=== PATIENT | male | born 1945 | race Caucasian/White ===

== ENCOUNTER 2017-08-08 18:45 | Inpatient (IN) | payer MEDICARE, OTHER ==
[~2017-08-08] VITALS: Ht 188 cm; Wt 110.0 kg
[2017-08-08] MEDS ORDERED: morphine 4 MG/ML VIAL IV STA (18:48)
[2017-08-08] MEDS ORDERED: ONDANSETRON 4 MG INJ IV STA ×2 (18:48→19:59)
[2017-08-08] MEDS ORDERED: SOD CHLORIDE 0.9% 500 ML IV STA (18:48)
--- NOTE | 2017-08-08 19:55 | RADRPT ---
PROCEDURE: Noncontrast CT Head. CLINICAL INDICATION: Syncope TECHNIQUE: Noncontrast CT of the head was obtained. The administered radiation dose was CTDI vol = 43.86 mGy, DLP = 810.25 mGy-cm. One or more of the following dose reduction techniques were used: Au tomated exposure control, Adjustment of the mA and/or kV according to patient size, or Use of iterat marisa reconstruction technique. COMPARISON: There are no similar studies submitted for comparison. FINDINGS: There is no acute intracranial hemorrhage, midline shift, or mass effect. The cerebral cervantes-white ma tter differentiation appears preserved. No extra-axial collection is seen. There is moderate diffuse cerebral volume loss with compensatory diffuse cerebral sulcal and ventricular enlargement. Minimal patchy low attenuation scattered in the periventricular and deep cerebral white matter is nonspecif ic, but suggestive of mild chronic microangiopathic change. The basal cisterns are preserved. No the re is moderate diffuse cerebellar volume loss. There is extensive intracranial calcific atherosclero tic disease involving the internal carotid arteries bilaterally and proximal right vertebral artery. The orbits are grossly unremarkable. The visualized paranasal sinuses and mastoid air cells are gloria ar. No acute fracture or suspicious osseous lesion is identified. IMPRESSION: 1. No evidence of an acute intracranial process. 2. Moderate diffuse cerebral volume loss and moderate diffuse cerebellar volume loss. 3. Evidence of mild chronic microangiopathic cerebral white matter change. 4. Extensive intracranial calcific atherosclerotic disease. RPTAT: [facility] Physician Danilo Date Time Electronically viewed and signed by Physician Danilo on 08/08/2017 19:55 RC/
[2017-08-08] MEDS ORDERED: HYDROmorphONE 0.5 MG/0.5 ML SYG IV STA ×4 (19:59→23:03)
--- NOTE | 2017-08-08 20:26 | RADRPT ---
PROCEDURE: CT Cervical Spine. CLINICAL INDICATION: Syncope TECHNIQUE: A CT of the cervical spine was performed on a multidetector [employer] CT scanner utilizing hig h-resolution axial imaging from the skull base through the cervical thoracic junction. Sagittal, co gab, and multiplanar reformatted images were made. CTDI 22.22 mGy and DLP 491.31 mGy-cm. One of the following 3 dose reduction techniques were used during this CT examination: 1) Automated exposure control 2) Adjustment of the mA +/- kV according to patient size or 3) Use of iterative reconstruction technique COMPARISON: None available FINDINGS: There is straightening of the normal cervical lordosis of the cervical spine with mild kyphotic apex at the C4-5 level. Preservation of vertebral body heights are noted. Severe anterior degenerative s pondylosis/enthesopathy is present of the C4-C6 levels with vacuum phenomenon with in the bridging o steophyte at C6-7 and continued at the C7-T1 levels. The vertebral body heights are well preserved. No acute fractures or traumatic subluxations are present. The intervertebral discs demonstrate mild disc space height loss at the C5-6 through to the C7-T1 levels with anterior disc calcification at C 7-T1. Ossification and posteriorly of the ligamentum nuchae is noted posterior to the spinous proces s sees of C4-C6. The visualized soft tissues are remarkable for surgical clips present in the region of the sternomanubrial joint. The posterior elements are intact and well aligned. The presence of f usion of the left greater than right facet joints at C4-5 is noted. No evidence for soft tissue swelling is present. The visualized paravertebral soft tissues imaged demonstrate mild vascular calc ifications of the carotid bulbs in the common carotid arteries. The bilateral thyroid lobes and the lung apices are clear. The specific axial levels are as follows: Occiput to C2: No significant pathology or stenosis is present. Atlantoaxial degenerative changes a re noted. C2-3: The intervertebral disc height is normal. Mild bilateral facet arthropathy is present. The ce ntral canal is and subarticular recesses and right neural foramen are patent. Mild left neural thuy inal stenosis is present. C3-4: The intervertebral discs is normal in height. A 3 mm mild broad-based bulge is present. AP ca nal dimension is 9.7 mm. Bilateral uncovertebral osteophytes and facet arthropathy is present. This results in a mild central canal stenosis, bilateral subarticular recess stenosis and moderate bilate ral neural foraminal stenosis. C4-5: The intervertebral disc demonstrates mild disc space height loss . Posterior fusion is noted of the C4-5 vertebral body and ankylosis is present of the bilateral facet joints. A large anterior bridging osteophyte is present. A 4-5 mm moderate to large broad-based disc osteophyte complex is pr esent. AP canal dimension is 7.8 mm. Right greater than left facet arthropathy and uncovertebral ost eophytes are noted. The above findings result in a moderate central canal stenosis, bilateral subart icular recess stenosis, and severe bilateral neural foraminal stenosis. C5-6: Mild disc space height loss is present and a large right anterolateral bridging osteophyte is noted. A mild 2 mm broad-based disc osteophyte complex is present. AP canal dimension is 9.8 mm. Thi s results in a mild central canal stenosis, bilateral subarticular recess stenosis and mild left victor hugo ral foraminal stenosis. The central canal, subarticular recess and neural foramen are patent. C6-7: Vacuum phenomenon is noted in the incomplete bridging osteophytes anteriorly at this level. M ild disc space height loss is present. A mild 3 mm broad-based bulge is present. A large right anter ior lateral osteophyte is again noted. AP canal dimension is 9 mm. This results in a mild central ca nal stenosis without subarticular recess or neural foraminal stenosis. C7-T1: Anterior bridging osteophytes are present at this level with anterior disc calcification at C7-T1. Mild disc space height loss is present. The central canal, subarticular recess and neural for amen are patent. IMPRESSION: 1. No acute fractures or traumatic subluxations are present. 2. Straightening of the normal cervical lordosis with kyphotic apex at C4-5 3. Severe anterior degenerative flowing osteophytes/enthesopathy as noted above at the C4-T1 levels. 4. Multilevel broad-based disc osteophyte complexes at the C3-4 through C6-7 levels with moderate ce ntral canal stenosis at C4-5 and mild at C3-4, C5-6 and C6-7. 5. Multilevel neural foraminal stenosis at the C2-3 through C6-7 levels. 6. Mild atherosclerotic vascular disease 7. Multilevel facet and uncovertebral osteoarthropathy as described above. RPTAT: HDC .Odilia Ward MD, MD Date Time Electronically viewed and signed by .Odilia Ward MD, MD on 08/08/2017 20:26 .C/
--- NOTE | 2017-08-08 20:55 | RADRPT ---
PROCEDURE: CT pelvis CLINICAL INDICATION: Pain in right hip status post fall TECHNIQUE: A CT of the pelvis was performed on a [employer] CT scanner utilizing high-resolut ion axial imaging. Sagittal, coronal, multiplanar reformatted images were made. Soft tissue and jose c ne algorithms were utilized. CTDI 27.35 and DLP 972.21 One of the following 3 dose reduction techniques were used during this CT examination: 1) Automated exposure control 2) Adjustment of the mA +/- kV according to patient size or 3) Use of iterative reconstruction technique COMPARISON: No relevant priors FINDINGS: An acute, closed, impaction type comminuted fracture of the right femoral neck is noted. Mild 3 mm d isplacement of several fracture fragments are noted both medially and laterally with mild impaction and foreshortening of the right femoral diaphysis. Generalized osteopenia is present. The visualized left hip and femur are normal in appearance. Degenerative changes are noted which are severe and th e bilateral sacroiliac joints with bridging osteophytes. Degenerative changes are present in the nathaly tebral discs imaged with vacuum phenomenon and severe disc space height loss at the L3-4 and L4-5 le vels. Mild disc space height loss is present at L5-S1. A grade 1 spondylolisthesis of L4 on L5-8 is present without evidence for spondylolysis. The visualized soft tissues of the pelvis demonstrate vascular calcifications of the aorta and the b ilateral common iliac arteries without aneurysmal dilatation. The visualized bowel demonstrates mild diverticulosis without evidence for acute diverticulitis and no evidence for appendicitis. The appe ndix is normal. The urinary bladder is well distended. A mild prostate gland enlargement is noted which measures 4.4 cm AP by 4.7 cm in transverse dimensions The right femoral head remains articulated with in the cailin tabulum. Generalized osteopenia is present. Bilateral fatty inguinal hernias are present without toribio dence for bowel herniation. The right measures 3.1 cm in transverse dimensions and the left measures 2.7 cm in transverse dimensions. IMPRESSION: 1. Acute, closed, comminuted and impacted right femoral neck fracture with foreshortening and mild displacement of fracture fragments is noted. 2. Generalized osteopenia 3. Severe degenerative changes of the imaged spine and the bilateral sacroiliac joints. 4. Grade 1 6 mm spondylolisthesis of L4 and L5 without evidence for spondylolysis. 5. Mild diverticulosis without evidence for acute diverticulitis or appendicitis. A call report was made to Dr. Root at approximately 10/21/2016 11:12:44 PM following the completion of the examination by the undersigned. RPTAT: HDC .Odilia Ward MD, MD Date Time Electronically viewed and signed by .Odilia Ward MD, on 08/08/2017 20:55 .C/
--- NOTE | 2017-08-08 21:20 | RADRPT ---
PROCEDURE: XR Chest. CLINICAL INDICATION: Syncope TECHNIQUE: AP Portable chest. COMPARISON: No pertinent prior examinations were submitted for comparison. FINDINGS: There is mild cardiomegaly. Prior median sternotomy is noted. There is mild pulmonary vascular eli estion. The osseous structures are unremarkable. IMPRESSION: Mild pulmonary vascular congestion. RPTAT: HIKT .Deion Douglas MD, MD Date Time Electronically viewed and signed by .Deion Douglas MD, MD on 08/08/2017 21:19 .T/
[2017-08-08 21:21] VITALS: TEMP 98.1
--- NOTE | 2017-08-08 21:55 | RADRPT ---
PROCEDURE: MRI lumbar spine CLINICAL INDICATION: Bilateral lower extremity weakness right greater than left with possible cord compression TECHNIQUE: An MRI of the lumbar spine was performed on a high resolution high definition, 3.[employer] MRI scanner utilizing the following sequences: Sagittal T1 weighted, sagittal and dual echo axial T2 weighted, and sagittal T2 weighted with fat saturation. COMPARISON: CT pelvis 08/08/2017 FINDINGS: There is a normal lordosis of the lumbar spine. 6 mm grade 1 spondylolisthesis of L4 and L5 is pre sent without evidence for spondylolysis present. 2 mm degenerative retrolisthesis of L1 on L2 and L2 on L3 is present. The vertebral body heights are well preserved. The intervertebral discs demonstra te multilevel disc desiccation at the T12-L1 through to the L5-S1 levels. Severe disc space height l oss is noted at the L1-2 through L4-5 levels with vacuum disc phenomenon present at L1-2 through L4- 5. Mild disc space height loss is present at the L5-S1 level. The posterior elements are intact and well aligned. The visualized paravertebral soft tissues are normal. The conus medullaris terminates normally at the T12-L1 level. The specific axial levels are as follows: T12 - L1: Disc desiccation is present with mild disc space height loss. A 5 mm large broad-based bu lge is present. Mild bilateral facet arthropathy is present with ligamentum hypertrophy. AP canal di mension is 7.8 mm. This results in a moderate central canal stenosis, bilateral subarticular recess stenosis, and moderate bilateral neural foraminal stenosis. L1 - L2: Disc desiccation with severe disc space height loss and vacuum phenomenon is present. A mo derate 4 mm broad-based disc osteophyte complex is present. A superimposed left subarticular recess 5 mm disc extrusion is present. Mild bilateral facet arthropathy and ligamentum hypertrophy is prese nt. AP canal dimension posterior to the disc extrusion is approximately 5 mm. This results in a iman re central, left subarticular recess stenosis, mild right subarticular recess stenosis and severe bi lateral neural foraminal stenosis. Recommend correlation with a left L2 radiculopathy secondary to t he left subarticular recess stenosis and a bilateral L1 radiculopathy secondary to neural foraminal stenosis. L2 - L3: Severe disc space height loss disc desiccation and vacuum phenomenon is present. A mild de generative retrolisthesis is again noted at this level. Mild broad-based disc osteophyte complex is present. AP canal dimension is 9.8 mm. Associated bilateral facet arthropathy, ligamentum hypertroph y and facet effusion is present. The above findings result in a mild central canal stenosis, bilater al subarticular recess stenosis , and severe bilateral neural foraminal stenosis. Recommend correlat ion with a bilateral L3 and L2 radiculopathy. L3 - L4: Disc desiccation and severe disc space height loss and vacuum phenomenon is present. A mil d osteophytic bar and bulge is present at which measures 5 mm. Moderate bilateral facet arthropathy and ligamentum hypertrophy is present. AP canal dimension is 10 mm. Mild central canal stenosis, lef t greater than right subarticular recess stenosis, severe left and moderate right neural foraminal s tenosis is present. Recommend correlation with a left greater than right L4 radiculopathy and L3 r adiculopathy. L4 - L5: Severe disc space height loss disc desiccation and vacuum disc phenomenon is present. Grad e 1 6 mm spondylolisthesis of L4 and L5 is present without evidence for spondylolysis. A large 5 mm broad-based bulge is present. Severe bilateral facet arthropathy is present. AP canal dimension is 6 .5 mm. This results in a moderate to severe central canal stenosis, severe bilateral subarticular re cess stenosis , and severe left greater than right neural foraminal stenosis. Recommend correlatio n with a bilateral L5 and left greater than right L4 radiculopathy. L5 - S1: Disc desiccation is present with mild disc space height loss. A mild 3 mm broad-based bulg e is present. Mild bilateral facet arthropathy is noted. The central canal, bilateral subarticular r ecesses are patent. Mild bilateral neural foraminal stenosis is present. A subcutaneous 2 cm lipoma is present at the L4-5 level. IMPRESSION: 1. No evidence for conus or cord compression. 2. No evidence for acute fractures or traumatic subluxations. 3. Grade 1 6 mm spondylolisthesis of L4 and L5 without evidence for spondylolysis. 4. Multilevel disc desiccation and disc space height loss as described above from the T12-L1 throug h L5-S1 levels with severe degenerative disc disease at the L1-2 through L4-5 levels. 5. 5 mm left subarticular recess disc extrusion at L1-2 with severe central and left subarticular re cess stenosis. Recommend correlation with a left L2 radiculopathy. 6. Multilevel broad-based disc osteophyte complexes at the T12-L1 through L5-S1 levels with severe central canal stenosis at L1-2, moderate to severe at L4-5, moderate at T12-L1, and mild at L2-3 and L3-4 levels. 7. Multilevel subarticular recess and neural foraminal stenosis as indicated above at the T12-L1 th rough L5-S1 levels with radiculopathy as noted. 8. Multilevel facet and ligamentum flavum osteoarthropathy. RPTAT: HDC .Odilia Ward MD, Date Time Electronically viewed and signed by .Odilia Ward MD, on 08/08/2017 21:55 .C/
[2017-08-08] MEDS ORDERED: ACETAMINOPHEN 325 MG TAB PO PRN (22:30)
[2017-08-08] MEDS ORDERED: ONDANSETRON 4 MG INJ IV PRN (22:30)
--- NOTE | 2017-08-08 23:23 | ERD ---
ER Documentation Chief Complaint Chief Complaint C/O RIGHT HIP AND RIGHT KNEE PAIN S/P GLF HPI This is a 72-year-old male who presents via EMS complaining of right hip pain status post ground-level fall. He states that he has chronic lumbar radiculopathy and he states that just prior to arrival he felt his right leg give out which is unusual for him. He fell to the ground. He did hit his head and does take Eliquis for atrial fibrillation. He denies any neck pain. He is now describing some weakness and difficulty moving the right lower extremity. He told the triage nurse he is having right knee pain but denies this to me. His tetanus is up-to-date. His pain is moderate, 5-6 out of 10 to the right hip and worse with movement. He denies any nausea or vomiting, no prodrome of chest pain or shortness of breath. ROS All systems reviewed and are negative except as per history of present illness. PMhx/Soc History of Surgery: Yes (AVR, back, R knee x 2, sinus) Anesthesia Reaction: No Hx Neurological Disorder: Yes (Parkinson) Hx Cardiac Disorders: Yes (HTN) Hx Alcohol Use: No Hx Substance Use: No Hx Tobacco Use: No Smoking Status: Former smoker FmHx Family History: No diabetes Physical Exam Vitals Vital Signs Date Time Temp Pulse Resp B/P Pulse Ox O2 Delivery O2 Flow Rate FiO2 08/08/17 21:21 98.1 81 18 148/74 95 Room Air 08/08/17 18:49 98.3 67 18 173/95 97 Physical Exam My trauma physical exam Airway is intact Bilateral breath sounds Strong distal pulses No obvious deficits General: Well developed, well nourished, no acute distress Head: Normocephalic, atraumatic other than small right occipital parietal abrasion, no significant hematoma Eyes: Pupils equally reactive, EOM intact ENT: Moist mucous membranes Neck: Supple, no lymphadenopathy, No midline tenderness, deformities, step-offs to the cervical spine, full active and passive range of motion without midline pain. Respiratory: Lungs clear bilaterally, no distress, no chest wall tenderness, no crepitus Cardiovascular: Irregular, no murmurs, rubs, or gallops Abdominal: Soft, non-tender, non-distended, no peritoneal signs, pelvis is stable : Deferred MSK: The patient appears to have weakness of the right lower extremity with slight shortening and external rotation. No focal tenderness to the ankle or knee bilaterally. Soft tissue tenderness of the right hip with difficulty ranging the right lower extremity. No midline tenderness deformities or step- offs of the thoracolumbar spine Neurologic: Alert and oriented, moving all extremities, normal speech, no focal weakness, no cerebellar signs Skin: No ecchymoses or bruising to the chest or abdomen Psych: Normal mood Result Diagram: 08/08/17189908/08/171899 Results 24 hrs Laboratory Tests Test 08/08/17 19:00 08/08/17 21:45 White Blood Count 13.910^3/ul Red Blood Count 5.1810^6/ul Hemoglobin 14.7g/dl Hematocrit 44.9% Mean Corpuscular Volume 86.7fl Mean Corpuscular Hemoglobin 28.4pg Mean Corpuscular Hemoglobin Concent 32.7g/dl Red Cell Distribution Width 14.9% Platelet Count 09902^3/UL Mean Platelet Volume 11.9fl Neutrophils % 86.1% Lymphocytes % 9.7% Monocytes % 3.2% Eosinophils % 0.5% Basophils % 0.1% Nucleated Red Blood Cells % 0.0/100WBC Neutrophils # 11.910^3/ul Lymphocytes # 1.410^3/ul Monocytes # 0.410^3/ul Eosinophils # 0.110^3/ul Basophils # 0.010^3/ul Nucleated Red Blood Cells # 0.010^3/ul Prothrombin Time 14.9Sec Prothrombin Time Ratio 1.2 INR International Normalized Ratio 1.16 Activated Partial Thromboplast Time 30.5Sec Sodium Level 143mmol/L Potassium Level 3.1mmol/L Chloride Level 101mmol/L Carbon Dioxide Level 30mmol/L Anion Gap 15 Blood Urea Nitrogen 27mg/dl Creatinine 1.35mg/dl Glucose Level 117mg/dl Calcium Level 9.2mg/dl Troponin I < 0.012ng/ml Urine Color YELLOW Urine Clarity CLEAR Urine pH 6.0 Urine Specific [place] 1.017 Urine Ketones TRACEmg/dL Urine Nitrite NEGATIVEmg/dL Urine Bilirubin NEGATIVEmg/dL Urine Urobilinogen 2+mg/dL Urine Leukocyte Esterase NEGATIVELeu/ul Urine Microscopic RBC 0/HPF Urine Microscopic WBC 2/HPF Urine Hemoglobin NEGATIVEmg/dL Urine Glucose NEGATIVEmg/dL Urine Total Protein 1+mg/dl Current Medications Medications (Trade) Dose Ordered Sig/Stefanie Route PRN Reason Start Time Stop Time Status Last Admin Dose Admin Sodium Chloride (NS) 500 ml @ 500 mls/hr Q1H STAT IV 08/08/17 18:48 08/08/17 19:47 DC 08/08/17 19:06 Morphine Sulfate (morphine) 4 mg ONCE STAT IV 08/08/17 18:48 08/08/17 18:51 DC 08/08/17 19:06 Ondansetron HCl (Zofran Inj) 4 mg ONCE STAT IV 08/08/17 18:48 08/08/17 18:51 DC 08/08/17 19:06 Hydromorphone HCl (Dilaudid) 0.5 mg ONCE STAT IV 08/08/17 19:59 08/08/17 20:47 DC Hydromorphone HCl (Dilaudid) 0.5 mg ONCE STAT IV 08/08/17 19:59 08/08/17 20:01 DC 08/08/17 20:02 Ondansetron HCl (Zofran Inj) 4 mg ONCE STAT IV 08/08/17 19:59 08/08/17 20:01 DC 08/08/17 20:02 Hydromorphone HCl (Dilaudid) 0.5 mg ONCE STAT IV 08/08/17 21:28 08/08/17 21:29 DC 08/08/17 21:33 Ondansetron HCl (Zofran Inj) 4 mg BRIDGE ORDER PRN IV NAUSEA AND/OR VOMITING 08/08/17 22:30 08/09/17 22:29 Acetaminophen (Tylenol Tab) 650 mg ER BRIDGE PRN PO MILD PAIN/FEVER 08/08/17 22:30 08/09/17 22:29 Hydromorphone HCl (Dilaudid) 0.5 mg ONCE STAT IV 08/08/17 23:03 08/08/17 23:04 DC Procedures/MDM EKG, MONITORS, & DIAGNOSTIC IMAGING: EKG: I reviewed and interpreted a 12-lead EKG. Rhythm: A. fib, rate controlled Ectopy: None Intervals: No abnormalities ST segments: No elevations or depressions T waves: No contiguous inversions Chest x-ray: I reviewed and interpreted a 1 view of the chest Mediastinum: No enlargement Cardiac silhouette: No cardiomegaly Airspace: Clear lung matute bilaterally without evidence of pneumothorax Bones: No evidence of fracture CT brain: No evidence of acute intracranial process per radiology read CT c spine: IMPRESSION: 1. No acute fractures or traumatic subluxations are present. 2. Straightening of the normal cervical lordosis with kyphotic apex at C4-5 3. Severe anterior degenerative flowing osteophytes/enthesopathy as noted above at the C4-T1 levels. 4. Multilevel broad-based disc osteophyte complexes at the C3-4 through C6-7 levels with moderate central canal stenosis at C4-5 and mild at C3-4, C5-6 and C6-7. 5. Multilevel neural foraminal stenosis at the C2-3 through C6-7 levels. 6. Mild atherosclerotic vascular disease 7. Multilevel facet and uncovertebral osteoarthropathy as described above. CT pelvis IMPRESSION: 1. Acute, closed, comminuted and impacted right femoral neck fracture with foreshortening and mild displacement of fracture fragments is noted. 2. Generalized osteopenia 3. Severe degenerative changes of the imaged spine and the bilateral sacroiliac joints. 4. Grade 1 6 mm spondylolisthesis of L4 and L5 without evidence for spondylolysis. 5. Mild diverticulosis without evidence for acute diverticulitis or appendicitis. A call report was made to Dr. Root at approximately 10/21/2016 11:12:44 PM following the completion of the examination by the undersigned. MRI spine IMPRESSION: 1. No evidence for conus or cord compression. 2. No evidence for acute fractures or traumatic subluxations. 3. Grade 1 6 mm spondylolisthesis of L4 and L5 without evidence for spondylolysis. 4. Multilevel disc desiccation and disc space height loss as described above from the T12-L1 through L5-S1 levels with severe degenerative disc disease at the L1-2 through L4-5 levels. 5. 5 mm left subarticular recess disc extrusion at L1-2 with severe central and left subarticular recess stenosis. Recommend correlation with a left L2 radiculopathy. 6. Multilevel broad-based disc osteophyte complexes at the T12-L1 through L5- S1 levels with severe central canal stenosis at L1-2, moderate to severe at L4-5 , moderate at T12-L1, and mild at L2-3 and L3-4 levels. 7. Multilevel subarticular recess and neural foraminal stenosis as indicated above at the T12-L1 through L5-S1 levels with radiculopathy as noted. 8. Multilevel facet and ligamentum flavum osteoarthropathy. LAB INTERPRETATION: White count of 13.9, nonspecific likely stress response, slight hypokalemia and renal insufficiency, negative troponin MEDICAL DECISION MAKING: The patient presents to the emergency room with a fall and right hip pain. There is strong concern for hip fracture however the patient does have weakness of the lower extremity with a history of lumbar radiculopathy. There is some concern that the prodrome of the patient's fall may have been related to cauda equina or cord compression. MRI is indicated. The patient does take Eliquis and has evidence of a head injury prompting CT imaging of the brain. The patient does not meet high-risk criteria and based on NEXUS cervical spine criteria there is no indication for cervical spine imaging at this time. ER COURSE: The patient had preoperative testing. No signs or symptoms concerning for syncope, arrhythmia, stroke. The patient's history of A. fib is consistent with his EKG and is rate controlled. He is appropriately anticoagulated. CT imaging shows evidence of a right femoral neck fracture. He was receiving multiple doses of pain medication. MRI shows no evidence of cord compression. The patient will wire inpatient hospitalization for surgical intervention of his hip fracture. I spoke to Dr. Duran who is on the case. The patient's tetanus is up-to-date. His scalp abrasion was cleansed, no indication for surgical, suture or Dermabond repair. I kept the patient and/or family informed of laboratory and diagnostic imaging results throughout the emergency room course. DISPOSITION PLAN: Medical surgical admission for management of right hip fracture CONSULTATION: Accepting care team and consultations: I discussed the current laboratory data, diagnostic imaging and emergency care provided. Admitting team: Dr. Talamantes Admitting team indication: Insurance directed Consulting services: Dr. Duran, orthopedic surgery Departure Diagnosis: Primary Impression: Closed right hip fracture Encounter type: initial encounter Qualified Code: S72.001A - Closed fracture of right hip, initial encounter Additional Impressions: History of atrial fibrillation Closed head injury Encounter type: initial encounter Qualified Code: S09.90XA - Closed head injury, initial encounter Acute renal insufficiency Condition: Stable STEPHANIE ROOT MD Aug 08, 2017 23:23
[2017-08-09] VITALS: BP 167/79; PULSE 78; RESP 18; Ht 188 cm; Wt 110.0 kg
[2017-08-09] MEDS ORDERED: POTASSIUM CHLORIDE (SR) 20 MEQ TAB PO ONE (00:30)
[2017-08-09 03:22] VITALS: BP 163/77; RESP 18
[2017-08-09] MEDS: morphine 2 MG INJ IV PRN ×4 (04:52→21:31)
--- NOTE | 2017-08-09 07:25 | HP ---
Date/Time of Note Date/Time of Note DATE: 08/09/17 TIME: 07:18 Assessment/Plan VTE Prophylaxis VTE Prophylaxis Intervention: SCD's Lines/Catheters IV Catheter Type (from Nrs): Saline Lock Assessment/Plan Assessment/Plan ASSESSMENT 72-year-old male with a history of Parkinson's disease, CAD with CABG, aortic valve replacement, lumbar canal stenosis, laminectomy and chronic lower back pain who presented to ER with right hip pain status post ground-level fall is found to have a right femoral neck fracture. PLAN Awaiting orthopedic evaluation Pain management Physical therapy evaluation Patient's lumbar spine findings are chronic and patient is aware of this. He can follow-up at the [facility] upon discharge Correct electrolytes as needed HPI/ROS Admit Date/Time Admit Date/Time Aug 08, 2017 at 22:26 Hx of Present Illness This is a 72-year-old male with a history of Parkinson's disease, CAD with CABG , aortic valve replacement, lumbar canal stenosis, laminectomy and chronic lower back pain who presented to the ER complaining of right hip pain. He said he was in his bedroom when he is right lower extremity buckle causing him to fall. He uses cane, walker or a wheelchair depending on how fast he wants to travel. He denied any chest pain, palpitation, lightheadedness, shortness of breath prior to or after the fall. When he presented to the ER, imaging shows right femoral neck fracture. Lumbar MRI showed severe central canal stenosis. PMH/Family/Social Social History Smoking Status: Former smoker Exam/Review of Systems Vital Signs Vitals Vital Signs Date Time Temp Pulse Resp B/P Pulse Ox O2 Delivery O2 Flow Rate FiO2 08/09/17 03:22 98.5 69 18 163/77 93 08/09/17 00:00 Room Air Intake and Output 08/08/17 08/08/17 08/09/17 15:00 23:00 07:00 Intake Total 240 ml Output Total 400 ml Balance -160 ml Exam Constitutional: alert, oriented, well developed Head: atraumatic, normocephalic Eyes: EOMI, PERRL ENMT: other (Poor dentition) Respiratory: clear to auscultation Cardiovascular: nl pulses, regular rate and rhythm Gastrointestinal: non-tender, soft Musculoskeletal: other (Right hip tenderness, and limited range of motion) Labs Result Diagram: 08/09/17 0529 08/09/17 0529 Medications Medications Current Medications Morphine Sulfate (morphine) 2 mg Q4H PRN IV PAIN LEVEL 6-10 Last administered on 08/09/17t 04:52; Admin Dose 2 MG; Start 08/09/17 at 00:30 GREG DORAN MD Aug 09, 2017 07:25
[2017-08-09 08:15] VITALS: BP 178/81; RESP 18
[2017-08-09] MEDS ORDERED: POTASSIUM CHLORIDE (SR) 20 MEQ TAB PO STA (11:46)
--- NOTE | 2017-08-09 11:50 | PN ---
Date/Time of Note Date/Time of Note DATE: 08/09/17 TIME: 11:50 Assessment/Plan VTE Prophylaxis VTE Prophylaxis Intervention: SCD's Lines/Catheters IV C[facility]ter Type (from [facility] Saline Lock Assessment/Plan Chief Complaint/Hosp Course 72-year-old male, with multiple comorbidities, who was transferred from assisted living place with status post ground-level fall with resultant right femoral neck fracture. 1. Mechanical fall with right femoral neck fracture. -Follow-up with orthopedic recommendations. At present, plan is right hip hemiarthroplasty. -Continue with pain medications. 2. Bilateral knee osteoarthritis. -Patient is being followed up with [facility] facility and is planning to have bilateral knee surgeries in August. 3. CAD with status post CABG -Continue medical optimization.(The coagulation+BB+ACEi+Statin) 4. History of aortic valve replacement. 5. Chronic back pain with history of laminectomy. -Continue as needed pain medications. 6. Parkinson's disease -Resume home medications and continue supportive care. 7. Dyslipidemia. -Resume statin 8. Hypertension. -Resume home antihypertensives. 9. Peripheral neuropathy. -Resume home medications. 10. Leukocytosis, most likely reactive. We will also obtain a urine culture and treat accordingly. Plan: As per orthopedic recommendation, patient needs right hip hemiarthroplasty. Due to his cardiac risk factors, we are going to request a 2D echocardiogram as well as cardiology consultation prior to any surgical intervention. We will also defer anticoagulation to cardiology team as patient is also taking Eliquis. For now, we will hold it. We will also have case management speak with patient as he also raised some concern regarding his follow-up at [facility] for future knee arthroplasty and would like to have the orthopedic team follow-up with this encounter if possible. Preoperative risk stratification. Given patient's medical condition, patient is at intermediate to high risk risk for any untoward medical events for surgery. However, benefit likely outweigh risks and recommended to have surgical intervention. Also please note that cardiology clearance is indicated prior to any surgical intervention. dvt Prophylaxis: At this time, we will provide patient with SCDs. Defer to cardiology regarding continuation of Eliquis versus other anticoagulants prior to surgery. Patient is seen in collaboration with . Problems: Subjective 24 Hr Interval Summary Free Text/Dictation Patient lying in bed comfortably. He is not in acute distress. Exam/Review of Systems Vital Signs Vitals Vital Signs Date Time Temp Pulse Resp B/P Pulse Ox O2 Delivery O2 Flow Rate FiO2 08/09/17 08:15 98.6 72 18 178/81 95 08/09/17 00:00 Room Air Intake and Output 08/08/17 08/08/17 08/09/17 15:00 23:00 07:00 Intake Total 240 ml Output Total 400 ml Balance -160 ml Exam General: Chronically ill looking, obese male, not in any acute distress . HEENT: Normocephalic, Atraumatic, No laceration or hematoma; Eyes: PEERL, Conjunctiva clear, Anicteric sclera Neck: Supple without any lymphadenopathy, nontender, no JVD, no carotid bruits, trachea midline, no thyromegaly Cardiac: S1, S2 auscultated, regular rhythm and rate, no mumurs or gallop Pulmonary: Normal respiratory effort. Chest clear to auscultation bilaterally, no adventitious breath sounds GI: Abdomen normal to inspection. Soft, non tender, non- distended, no masses, no rebound tenderness or guarding. Bowel sounds active on all four quadrants Genitourinary: Deferred Extremities: With right hip tenderness and decreased range of motion on right lower extremity. With Parkinson's tremors on hands/arms. No cyanosis, clubbing , or edema. Pulses [2+] bilaterally. Neurologic: Alert to person, place, time, and situation. Affect appropriate, intact sensation. Skin: Clean,dry, and intact. No ecchymosis, no rashes, or lesions Results Result Diagram: 08/09/17 0529 08/09/17 0529 Results 24 hrs Laboratory Tests Test 08/08/17 19:00 08/08/17 21:45 08/09/17 05:29 White Blood Count 13.9 H 15.7 H Red Blood Count 5.18 5.12 Hemoglobin 14.7 15.2 Hematocrit 44.9 44.3 Mean Corpuscular Volume 86.7 86.5 Mean Corpuscular Hemoglobin 28.4 L 29.7 Mean Corpuscular Hemoglobin Concent 32.7 34.3 Red Cell Distribution Width 14.9 H 14.6 H Platelet Count 161 147 Mean Platelet Volume 11.9 H 12.3 H Neutrophils % 86.1 H 85.1 H Lymphocytes % 9.7 L 5.6 L Monocytes % 3.2 5.5 Eosinophils % 0.5 2.8 Basophils % 0.1 0.4 Nucleated Red Blood Cells % 0.0 0.0 Neutrophils # 11.9 H 13.3 H Lymphocytes # 1.4 0.9 Monocytes # 0.4 0.9 Eosinophils # 0.1 0.4 Basophils # 0.0 0.1 Nucleated Red Blood Cells # 0.0 0.0 Prothrombin Time 14.9 H Prothrombin Time Ratio 1.2 INR International Normalized Ratio 1.16 Activated Partial Thromboplast Time 30.5 Sodium Level 143 144 Potassium Level 3.1 L 3.3 L Chloride Level 101 102 Carbon Dioxide Level 30 30 Anion Gap 15 15 Blood Urea Nitrogen 27 H 25 H Creatinine 1.35 H 1.14 Glucose Level 117 121 Calcium Level 9.2 8.7 Troponin I < 0.012 Urine Color YELLOW Urine Clarity CLEAR Urine pH 6.0 Urine Specific [place] 1.017 Urine Ketones TRACE A Urine Nitrite NEGATIVE Urine Bilirubin NEGATIVE Urine Urobilinogen 2+ H Urine Leukocyte Esterase NEGATIVE Urine Microscopic RBC 0 Urine Microscopic WBC 2 Urine Hemoglobin NEGATIVE Urine Glucose NEGATIVE Urine Total Protein 1+ H Phosphorus Level 3.3 Magnesium Level 1.8 Total Bilirubin 1.8 H Direct Bilirubin 0.00 Indirect Bilirubin 1.8 H Aspartate Amino Transf (AST/SGOT) 26 Alanine Aminotransferase (ALT/SGPT) 35 Alkaline Phosphatase 68 Total Protein 6.9 Albumin 4.3 Globulin 2.60 Albumin/Globulin Ratio 1.65 Medications Medications Current Medications Morphine Sulfate (morphine) 2 mg Q4H PRN IV PAIN LEVEL 6-10 Last administered on 08/09/17t 08:37; Admin Dose 2 MG; Start 08/09/17 at 00:30 HARLEY ORLANDO NP Aug 09, 2017 11:50 HARLEY ORLANDO NP Aug 09, 2017 11:50
--- NOTE | 2017-08-09 13:09 | RADRPT ---
PROCEDURE: XR Knees. CLINICAL INDICATION: Pain. History of surgery. TECHNIQUE: Three views of the bilateral knees are available for review. COMPARISON: None available FINDINGS: Left knee: There is no acute osseous abnormality or evidence of fracture. Mild narrowing is seen at the lateral femorotibial compartment small marginal osteophyte formation. Subcortical lucencies and irregularity seen at the lateral femoral condyle, likely chronic in nature. There that surgical cli ps are seen at the dorsomedial aspect of the knee. No evidence for a joint effusion. Vascular calcif ications are present. There is chondrocalcinosis. Right knee: Subchondral sclerosis, marginal osteophyte formation and narrowing is seen all 3 compartments. There is severe narrowing of the medial and lateral femorotibial compartments. No acute osseous abnormali ty is seen. There is a screw at the proximal tibia possibly from prior tibial tubercle transfer or p atellar tendon repair. There is a right knee joint effusion. IMPRESSION: 1. Mild lateral femorotibial compartment arthrosis also noting chondrocalcinosis in the left knee. 2. Tricompartmental right knee arthrosis severe at the femorotibial compartments. 3. Right knee joint effusion. 4. Intact screw at the proximal tibia on the right. RPTAT: [facility]U .Dimitrios Dubon MD, Date Time Electronically viewed and signed by .Dimitrios Dubon MD, MD on 08/09/2017 13:09 .d/
[2017-08-09] MEDS ORDERED: ASPI-664 PO (13:12)
[2017-08-09] MEDS ORDERED: ATOR20TA38 PO (13:13)
[2017-08-09] MEDS ORDERED: DOCU250C58 PO (13:15)
[2017-08-09] MEDS ORDERED: GABA300C16 PO ×2 (13:16→13:17)
[2017-08-09] MEDS ORDERED: CARV25TA79 PO (13:17)
[2017-08-09] MEDS ORDERED: LISI20TA11 PO (13:18)
[2017-08-09] MEDS ORDERED: TAMS0.4C2 PO (13:19)
[2017-08-09] MEDS ORDERED: TRAM50TA2 PO (13:20)
[2017-08-09] MEDS ORDERED: SENN-36 PO (13:21)
[2017-08-09] MEDS ORDERED: POLY17PO3 PO (13:21)
[2017-08-09] MEDS ORDERED: CHOL100062 PO (13:22)
[2017-08-09] MEDS ORDERED: DICL100G37 TOP (13:24)
[2017-08-09] MEDS ORDERED: AMAN100T PO (13:25)
[2017-08-09] MEDS ORDERED: APIX5TAB PO (13:26)
[2017-08-09] MEDS ORDERED: ACET500C5 PO (13:27)
[2017-08-09] MEDS ORDERED: CARB1TAB34 PO (13:29)
[2017-08-09 13:30] VITALS: BP 179/80; RESP 18
[2017-08-09] MEDS ORDERED: CARB15DR BOTH EYES (13:31)
[2017-08-09] MEDS ORDERED: BENG30OI TOP (13:34)
[2017-08-09] MEDS ORDERED: LACTINEX PO (13:40)
--- NOTE | 2017-08-09 14:14 | RADRPT ---
PROCEDURE: XR PELVIS. CLINICAL INDICATION: Pain rule out fracture TECHNIQUE: Single view of the pelvis was performed. COMPARISON: None. FINDINGS: There is shortening of the right femoral neck, highly concerning for acute fracture. There is mild s uperior elevation of the right proximal femur. The left hip is intact. There is bilateral femoral ac etabular osteoarthritic changes. Degenerate changes of the lumbosacral spine is noted. Iliac wings a re intact. The bilateral SI joints are symmetric. IMPRESSION: 1. ACUTE RIGHT FEMORAL NECK FRACTURE, with superior elevation of the right proximal femur. The femor al acetabular joint is intact. 2. Osteoarthritis of the left hip and lumbosacral spine. RPTAT: AAPP Physician Debbie Date Time Electronically viewed and signed by Physician Dbebie on 08/09/2017 14:14 ASUNCION/
[2017-08-09] MEDS ORDERED: CARBOXYMETHYLCELLULOSE 0.5% 0.1 ML OPH BOTH EYES PRN (15:00)
[2017-08-09] MEDS ORDERED: POLYETHYLENE GLYCOL 17 GM PACKET PO PRN (15:00)
[2017-08-09] MEDS: LISINOPRIL 20 MG TAB PO SCH (15:21)
[2017-08-09] MEDS: LACTOBACILLUS RHAMNOSUS CAP PO SCH ×2 (15:21→20:32)
--- NOTE | 2017-08-09 15:39 | CONS ---
Date/Time of Note Date/Time of Note DATE: 08/09/17 TIME: 15:35 Assessment/Plan Assessment/Plan Chief Complaint/Hosp Course 1.CV preop evaluation 2. R Femoral neck fracture 3. CAD 4. HX CABG 5. HX AVR 6. HTN 7. Dyslipidemia 8. pulm HTN, CHF 9./ HYPO K. cont coreg/ BELEM-I lasix x 1 now and will adjut hold eliquis for now. needs to be held 24-48 hours prior to the surgery. cont statin check lipid panel will check baseline ECG replace lytes after above pt would be considered stable with moderate risk of CV events for the proposed ortho surgery. no further cardiac work up would be indicated. Thank you for his referral. I will continue to follow along with you. DEVENDRA DODGE MD [facility] Problems: Consultation Date/Type/Reason Admit Date/Time Aug 08, 2017 at 22:26 Date of Consultation: Aug 09, 2017 Reason for Consultation CV preop Referring Provider: HARLEY ORLANDO NP Hx of Present Illness CC: S/P fall with knee and hip pain HPI: Dear Dr Orlando. Thank thank you for his referral. This is a very pleasant 72-year-old gentleman with history of coronary artery disease status post coronary bypass graft and probably bioprosthetic aortic valve replacement who had a mechanical fall. Patient is a fair historian at best. Said that he fell but he did not pass out. He said that he is the knee gave away and he fell. Patient has multiple fractures and is in need of orthopedic surgery. We were kindly asked to evaluate and treat. Patient denies any chest pain or pressure to me denies any palpitation to me. He reports that he has had a bypass surgery about 2 years ago and he reports that he has had a stress test done after that prior to rehab and he has done well and did not have any significant ischemia per his report. He says a sore tongue appear to be very limited due to his mostly orthopedic issues and arthritis and pain. Patient denies any PND orthopnea to me. Allergies: No known drug allergies Medications were reviewed with the medical reconciliation reviewed personally reviewed. Patient said he is taking Eliquis but he is not sure why. He is stated his last dose was 2-[address] Social history: Patient does not smoke now. He is a [facility] patient. Is being followed by the [place] normally. Past surgical history: History of aortic valve replacement and three-vessel bypass surgery about 2 years ago. Family history denies any history of early coronary artery disease. Review of systems above-mentioned. Patient has had left knee discomfort previously as well. He denies all review of systems except for above-mentioned to me. Social History Smoking Status: Former smoker Exam/Review of Systems Vital Signs Vitals Vital Signs Date Time Temp Pulse Resp B/P Pulse Ox O2 Delivery O2 Flow Rate FiO2 08/09/17 13:30 99.2 80 18 179/80 92 08/09/17 00:00 Room Air Intake and Output 08/08/17 08/08/17 08/09/17 15:00 23:00 07:00 Intake Total 240 ml Output Total 400 ml Balance -160 ml Exam General: no acute distress HEENT: NC/AT. pupils are equal. round. NECK: NO JVD. no stridor. chest: s/p sternotomy CV: RRR. systolic murmur; no gallop or rubs. PULM: no wheezing or rhonchi. GI: SOFT, NT, ND, no rebound or guarding Extremity: trace B/L LE edema. no clubbing. neuro: awake and alert, OX3. Psych: calm and pleasant rectal: deferred : normal male ECHO personally reviewed: normal EF pulm HTN normal functioning AVR. xRAY: 1. ACUTE RIGHT FEMORAL NECK FRACTURE, with superior elevation of the right proximal femur. The femoral acetabular joint is intact. 2. Osteoarthritis of the left hip and lumbosacral spine. Results Result Diagram: 08/09/17 0529 08/09/1729 Results 24 hrs Laboratory Tests Test 08/08/17 19:00 08/08/17 21:45 08/09/17 05:29 White Blood Count 13.9 H 15.7 H Red Blood Count 5.18 5.12 Hemoglobin 14.7 15.2 Hematocrit 44.9 44.3 Mean Corpuscular Volume 86.7 86.5 Mean Corpuscular Hemoglobin 28.4 L 29.7 Mean Corpuscular Hemoglobin Concent 32.7 34.3 Red Cell Distribution Width 14.9 H 14.6 H Platelet Count 161 147 Mean Platelet Volume 11.9 H 12.3 H Neutrophils % 86.1 H 85.1 H Lymphocytes % 9.7 L 5.6 L Monocytes % 3.2 5.5 Eosinophils % 0.5 2.8 Basophils % 0.1 0.4 Nucleated Red Blood Cells % 0.0 0.0 Neutrophils # 11.9 H 13.3 H Lymphocytes # 1.4 0.9 Monocytes # 0.4 0.9 Eosinophils # 0.1 0.4 Basophils # 0.0 0.1 Nucleated Red Blood Cells # 0.0 0.0 Prothrombin Time 14.9 H Prothrombin Time Ratio 1.2 INR International Normalized Ratio 1.16 Activated Partial Thromboplast Time 30.5 Sodium Level 143 144 Potassium Level 3.1 L 3.3 L Chloride Level 101 102 Carbon Dioxide Level 30 30 Anion Gap 15 15 Blood Urea Nitrogen 27 H 25 H Creatinine 1.35 H 1.14 Glucose Level 117 121 Calcium Level 9.2 8.7 Troponin I < 0.012 Urine Color YELLOW Urine Clarity CLEAR Urine pH 6.0 Urine Specific [place] 1.017 Urine Ketones TRACE A Urine Nitrite NEGATIVE Urine Bilirubin NEGATIVE Urine Urobilinogen 2+ H Urine Leukocyte Esterase NEGATIVE Urine Microscopic RBC 0 Urine Microscopic WBC 2 Urine Hemoglobin NEGATIVE Urine Glucose NEGATIVE Urine Total Protein 1+ H Phosphorus Level 3.3 Magnesium Level 1.8 Total Bilirubin 1.8 H Direct Bilirubin 0.00 Indirect Bilirubin 1.8 H Aspartate Amino Transf (AST/SGOT) 26 Alanine Aminotransferase (ALT/SGPT) 35 Alkaline Phosphatase 68 Total Protein 6.9 Albumin 4.3 Globulin 2.60 Albumin/Globulin Ratio 1.65 Medications Medications Current Medications Morphine Sulfate (morphine) 2 mg Q4H PRN IV PAIN LEVEL 6-10 Last administered on 08/09/17t 13:05; Admin Dose 2 MG; Start 08/09/17 at 00:30 Amantadine HCl (Symmetrel) 200 mg BID PO ; Start 08/09/17 at 21:00 Aspirin (Halfprin) 81 mg DAILY PO ; Start 08/10/17 at 09:00 Atorvastatin Calcium (Lipitor) 80 mg QHS PO ; Start 08/09/17 at 21:00 Carbidopa/Levodopa (Sinemet (25/ 100)) 1 tab QID PO ; Start 08/09/17 at 17:00 Eye Lubricant (Refresh Plus) 1 drop TID PRN BOTH EYES DRY EYES; Start at 15:00 Cholecalciferol (Vitamin D) 1,000 unit DAILY PO ; Start 08/10/17 at 09:00 Docusate Sodium (Colace) 250 mg BID PO ; Start 08/09/17 at 21:00 Gabapentin (Neurontin) 300 mg QHS PO ; Start 08/09/17 at 21:00 Polyethylene Glycol (Miralax) 17 gm DAILY PRN PO CONSTIPATION; Start 08/09/17 at 15:00 Senna (Senokot) 1 tab DAILY PRN PO CONSTIPATION; Start 08/09/17 at 15:00 Tamsulosin HCl (Flomax) 0.4 mg HS PO ; Start 08/09/17 at 21:00 Lactobacillus Acidophilus/ Rhamnosus (Culturelle) 1 cap BID PO Last administered on 08/09/17 15:21; Admin Dose 1 CAP; Start 08/09/17 at 14:54 Lisinopril (Zestril) 20 mg DAILY PO Last administered on 08/09/17 15:21; Admin Dose 20 MG; Start 08/09/17 at 14:49 Carvedilol (Coreg) 25 mg BID PO Last administered on 08/09/17 15:21; Admin Dose 25 MG; Start 08/09/17 at 14:50 DEVENDRA DODGE MD Aug 09, 2017 15:39
--- NOTE | 2017-08-09 15:55 | RADRPT ---
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 Physician: HARLEY ORLANDO Quality: Technically Difficult Study Procedures: Transthoracic echocardiogram with complete 2D, M-Mode, and doppler examination. Indications: Pre-op. 2D/M Mode Doppler Measurement Value Normal Ranges Measurement Value Normal Ranges LVIDd 2D 4.3 3.5 - 5.6 cm AV Mean Tre 1.5 m/sec LVIDs 2D 3.0 2.1 - 4.1 cm AV Mean PG 11.0 mmHg FS 2D 30.4 % AV Peak Tre 2.3 m/sec LVPWd 2D 1.5 0.6 - 1.1 cm AV Peak PG 22.0 mmHg IVSd 2D 1.5 0.6 - 1.1 cm AV VTI 42.8 cm IVS/LVPW 2D 1.0 LVOT Peak Tre 0.9 m/sec AoR Diam 2D 2.7 2.0 - 3.7 cm LVOT Peak PG 3.0 mmHg LA/Ao 2D 2 0 - 1 MV E Peak Tre 1.0 m/sec EDV 2D 80.1 cm3 MV A Peak Tre 1.3 m/sec ESV 2D 27.0 cm3 MV E/A 0.8 LA Dimen 2D 4.2 2.3 - 4.0 cm MV Decel Time 155 msec MV E/A 0.8 TR Peak Tre 3.9 m/sec TR Peak PG 61.0 mmHg RVSP 71.0 mmHg Findings Left Ventricle: Normal left ventricular systolic function. Normal left ventricular cavity size. Moderate concentric left ventricular hypertrophy. Ejection fraction is visually estimated at 55 - 60 %. Tissue Doppler/Mitral Doppler indices are consistent with impaired relaxation (Stage I diastolic dysfunction). Right Ventricle: Normal right ventricular size. Normal right ventricular systolic function. Left Atrium: There is mild enlargement of left atrium. Right Atrium: There is mild enlargement of right atrium. Mitral Valve: Mitral valve leaflets appear mildly thickened. Mild mitral annular calcification. No mitral valve regurgitation is seen. Aortic Valve: No significant aortic stenosis or insufficiency. Aortic cusps appear mildly calcified. Tricuspid Valve: Normal appearance of the tricuspid valve. Estimated peak PA systolic pressure 71 mmHg. There is mild tricuspid regurgitation. Pulmonic Valve: Pulmonic valve not well visualized. Pericardium: Normal pericardium with no significant pericardial effusion. Aorta: Normal aortic root. IVC: Normal size and normal respiratory collapse consistent with normal right atrial pressure. Conclusions 1.Normal left ventricular systolic function. Normal left ventricular cavity size. Moderate concentric left ventricular hypertrophy. Ejection fraction is visually estimated at 55 - 60 %. Tissue Doppler/Mitral Doppler indices are consistent with impaired relaxation (Stage I diastolic dysfunction). 2.There is mild enlargement of left atrium. 3.There is mild enlargement of right atrium. 4.Mitral valve leaflets appear mildly thickened. Mild mitral annular calcification. No mitral valve regurgitation is seen. 5.No significant aortic stenosis or insufficiency. Aortic cusps appear mildly calcified. 6.Normal size and normal respiratory collapse consistent with normal right atrial pressure. Electronically Signed By: Fei Castano 09-Aug-2017 15:54:26 -0700 Patient Name: SHIV PORTER Study Date: 09-Aug-2017 [id number]
--- NOTE | 2017-08-09 15:55 | RADRPT ---
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 Physician: HARLEY ORLANDO Quality: Technically Difficult Study Procedures: Transthoracic echocardiogram with complete 2D, M-Mode, and doppler examination. Indications: Pre-op. 2D/M Mode Doppler Measurement Value Normal Ranges Measurement Value Normal Ranges LVIDd 2D 4.3 3.5 - 5.6 cm AV Mean Tre 1.5 m/sec LVIDs 2D 3.0 2.1 - 4.1 cm AV Mean PG 11.0 mmHg FS 2D 30.4 % AV Peak Tre 2.3 m/sec LVPWd 2D 1.5 0.6 - 1.1 cm AV Peak PG 22.0 mmHg IVSd 2D 1.5 0.6 - 1.1 cm AV VTI 42.8 cm IVS/LVPW 2D 1.0 LVOT Peak Tre 0.9 m/sec AoR Diam 2D 2.7 2.0 - 3.7 cm LVOT Peak PG 3.0 mmHg LA/Ao 2D 2 0 - 1 MV E Peak Tre 1.0 m/sec EDV 2D 80.1 cm3 MV A Peak Tre 1.3 m/sec ESV 2D 27.0 cm3 MV E/A 0.8 LA Dimen 2D 4.2 2.3 - 4.0 cm MV Decel Time 155 msec MV E/A 0.8 TR Peak Tre 3.9 m/sec TR Peak PG 61.0 mmHg RVSP 71.0 mmHg Findings Left Ventricle: Normal left ventricular systolic function. Normal left ventricular cavity size. Moderate concentric left ventricular hypertrophy. Ejection fraction is visually estimated at 55 - 60 %. Tissue Doppler/Mitral Doppler indices are consistent with impaired relaxation (Stage I diastolic dysfunction). Right Ventricle: Normal right ventricular size. Normal right ventricular systolic function. Left Atrium: There is mild enlargement of left atrium. Right Atrium: There is mild enlargement of right atrium. Mitral Valve: Mitral valve leaflets appear mildly thickened. Mild mitral annular calcification. No mitral valve regurgitation is seen. Aortic Valve: No significant aortic stenosis or insufficiency. Aortic cusps appear mildly calcified. Tricuspid Valve: Normal appearance of the tricuspid valve. Estimated peak PA systolic pressure 71 mmHg. There is mild tricuspid regurgitation. Pulmonic Valve: Pulmonic valve not well visualized. Pericardium: Normal pericardium with no significant pericardial effusion. Aorta: Normal aortic root. IVC: Normal size and normal respiratory collapse consistent with normal right atrial pressure. Conclusions 1.Normal left ventricular systolic function. Normal left ventricular cavity size. Moderate concentric left ventricular hypertrophy. Ejection fraction is visually estimated at 55 - 60 %. Tissue Doppler/Mitral Doppler indices are consistent with impaired relaxation (Stage I diastolic dysfunction). 2.There is mild enlargement of left atrium. 3.There is mild enlargement of right atrium. 4.Mitral valve leaflets appear mildly thickened. Mild mitral annular calcification. No mitral valve regurgitation is seen. 5.No significant aortic stenosis or insufficiency. Aortic cusps appear mildly calcified. 6.Normal size and normal respiratory collapse consistent with normal right atrial pressure. Electronically Signed By: Fei Castano 09-Aug-2017 15:54:26 -0700 Patient Name: SHIV PORTER Study Date: 09-Aug-2017 [id number]
--- NOTE | 2017-08-09 15:55 | RADRPT ---
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 Physician: HARLEY ORLANDO Quality: Technically Difficult Study Procedures: Transthoracic echocardiogram with complete 2D, M-Mode, and doppler examination. Indications: Pre-op. 2D/M Mode Doppler Measurement Value Normal Ranges Measurement Value Normal Ranges LVIDd 2D 4.3 3.5 - 5.6 cm AV Mean Tre 1.5 m/sec LVIDs 2D 3.0 2.1 - 4.1 cm AV Mean PG 11.0 mmHg FS 2D 30.4 % AV Peak Tre 2.3 m/sec LVPWd 2D 1.5 0.6 - 1.1 cm AV Peak PG 22.0 mmHg IVSd 2D 1.5 0.6 - 1.1 cm AV VTI 42.8 cm IVS/LVPW 2D 1.0 LVOT Peak Tre 0.9 m/sec AoR Diam 2D 2.7 2.0 - 3.7 cm LVOT Peak PG 3.0 mmHg LA/Ao 2D 2 0 - 1 MV E Peak Tre 1.0 m/sec EDV 2D 80.1 cm3 MV A Peak Tre 1.3 m/sec ESV 2D 27.0 cm3 MV E/A 0.8 LA Dimen 2D 4.2 2.3 - 4.0 cm MV Decel Time 155 msec MV E/A 0.8 TR Peak Tre 3.9 m/sec TR Peak PG 61.0 mmHg RVSP 71.0 mmHg Findings Left Ventricle: Normal left ventricular systolic function. Normal left ventricular cavity size. Moderate concentric left ventricular hypertrophy. Ejection fraction is visually estimated at 55 - 60 %. Tissue Doppler/Mitral Doppler indices are consistent with impaired relaxation (Stage I diastolic dysfunction). Right Ventricle: Normal right ventricular size. Normal right ventricular systolic function. Left Atrium: There is mild enlargement of left atrium. Right Atrium: There is mild enlargement of right atrium. Mitral Valve: Mitral valve leaflets appear mildly thickened. Mild mitral annular calcification. No mitral valve regurgitation is seen. Aortic Valve: No significant aortic stenosis or insufficiency. Aortic cusps appear mildly calcified. Tricuspid Valve: Normal appearance of the tricuspid valve. Estimated peak PA systolic pressure 71 mmHg. There is mild tricuspid regurgitation. Pulmonic Valve: Pulmonic valve not well visualized. Pericardium: Normal pericardium with no significant pericardial effusion. Aorta: Normal aortic root. IVC: Normal size and normal respiratory collapse consistent with normal right atrial pressure. Conclusions 1.Normal left ventricular systolic function. Normal left ventricular cavity size. Moderate concentric left ventricular hypertrophy. Ejection fraction is visually estimated at 55 - 60 %. Tissue Doppler/Mitral Doppler indices are consistent with impaired relaxation (Stage I diastolic dysfunction). 2.There is mild enlargement of left atrium. 3.There is mild enlargement of right atrium. 4.Mitral valve leaflets appear mildly thickened. Mild mitral annular calcification. No mitral valve regurgitation is seen. 5.No significant aortic stenosis or insufficiency. Aortic cusps appear mildly calcified. 6.Normal size and normal respiratory collapse consistent with normal right atrial pressure. Electronically Signed By: Fei Castano 09-Aug-2017 15:54:26 -0700 Patient Name: SHIV PORTER Study Date: 09-Aug-2017 [id number]
[2017-08-09] MEDS: CARBIDOPA/LEVODOPA (25/100) TAB PO SCH ×2 (16:29→20:31)
[2017-08-09] MEDS: SPIRONOLACTONE 25 MG TAB PO SCH (16:29)
[2017-08-09] MEDS ORDERED: FUROSEMIDE 40 MG INJ IV ONE (16:30)
[2017-08-09] MEDS ORDERED: MAGNESIUM SULFATE 2 GM/50 ML 50 ML IVPB ONE (16:30)
--- NOTE | 2017-08-09 16:52 | CONS ---
DATE OF ADMISSION: 08/08/2017 DATE OF CONSULTATION: 08/09/2017 HISTORY OF PRESENT ILLNESS: Patient is a 72-year-old male who was admitted on 08 August 2017, when he came to the emergency room complaining of painful limit of motion involving his right hip. According to the patient, he was in his bathroom when he lost balance and fell down when his right knee gave out on him. He had a trauma and surgery involving his right knee as a teenager, which was complicated with some type of infection. He is to have a surgical treatment, may need total knee replacement of the right knee in the near future at [facility]. PHYSICAL EXAMINATION: My examination revealed a somewhat obese 72-year-old male, supine position in bed. There was a tenderness and swelling around the right hip. The range of motion of the right hip was not tested because of the pain. He is holding his right hip flexed and somewhat externally rotated. There was no evidence of acute neurovascular compromise involving the right lower extremity. LABORATORY: CT scan of the right hip revealed the presence of basal femoral neck fracture of the right hip. DIAGNOSTIC IMPRESSION: Basal neck fracture of the right hip. PLAN: Recommendations for treatment will be hemiarthroplasty of the right hip as soon as he can be medically cleared. I was informed that the patient wanted to be transferred to [facility], where he was going to have a total knee replacement done in the near future. Dictated By: In Britt Duran MD /[email or web address] /Document#: [id number]
--- NOTE | 2017-08-09 16:52 | CONS ---
DATE OF ADMISSION: 08/08/2017 DATE OF CONSULTATION: 08/09/2017 HISTORY OF PRESENT ILLNESS: Patient is a 72-year-old male who was admitted on 08 August 2017, when he came to the emergency room complaining of painful limit of motion involving his right hip. According to the patient, he was in his bathroom when he lost balance and fell down when his right knee gave out on him. He had a trauma and surgery involving his right knee as a teenager, which was complicated with some type of infection. He is to have a surgical treatment, may need total knee replacement of the right knee in the near future at [facility]. PHYSICAL EXAMINATION: My examination revealed a somewhat obese 72-year-old male, supine position in bed. There was a tenderness and swelling around the right hip. The range of motion of the right hip was not tested because of the pain. He is holding his right hip flexed and somewhat externally rotated. There was no evidence of acute neurovascular compromise involving the right lower extremity. LABORATORY: CT scan of the right hip revealed the presence of basal femoral neck fracture of the right hip. DIAGNOSTIC IMPRESSION: Basal neck fracture of the right hip. PLAN: Recommendations for treatment will be hemiarthroplasty of the right hip as soon as he can be medically cleared. I was informed that the patient wanted to be transferred to [facility], where he was going to have a total knee replacement done in the near future. Dictated By: In Britt Duran MD /[email or web address] /Document#: [id number]
[2017-08-09] MEDS: DOCUSATE SODIUM 250 MG CAP PO SCH (20:30)
[2017-08-09] MEDS: GABAPENTIN 300 MG CAP PO SCH (20:30)
[2017-08-09] MEDS: AMANTADINE 100 MG CAP PO SCH (20:31)
[2017-08-09] MEDS: TAMSULOSIN (SR) 0.4 MG CAP PO SCH (20:31)
[2017-08-09] MEDS: ATORVASTATIN 80 MG TAB PO SCH (20:31)
[2017-08-09 20:44] VITALS: BP 140/67; RESP 18
[2017-08-10 02:45] VITALS: BP 145/68; RESP 18
[2017-08-10] MEDS: GABAPENTIN 300 MG CAP PO SCH ×2 (06:34→21:10)
[2017-08-10 07:58] VITALS: BP 130/69; RESP 18
[2017-08-10] MEDS ORDERED: LISINOPRIL 20 MG TAB PO SCH (09:00)
[2017-08-10] MEDS: ASPIRIN (EC) 81 MG TAB PO SCH (09:23)
[2017-08-10] MEDS: CARBIDOPA/LEVODOPA (25/100) TAB PO SCH ×4 (09:23→21:11)
[2017-08-10] MEDS: LACTOBACILLUS RHAMNOSUS CAP PO SCH ×2 (09:23→21:10)
[2017-08-10] MEDS: DOCUSATE SODIUM 250 MG CAP PO SCH ×2 (09:23→21:10)
[2017-08-10] MEDS: SPIRONOLACTONE 25 MG TAB PO SCH (09:23)
[2017-08-10] MEDS: CHOLECALCIFEROL 1,000 UNIT TAB PO SCH (09:23)
[2017-08-10] MEDS: AMANTADINE 100 MG CAP PO SCH ×2 (09:23→21:11)
[2017-08-10] MEDS: LISINOPRIL 20 MG TAB PO SCH (09:24)
[2017-08-10] MEDS: morphine 2 MG INJ IV PRN ×2 (10:37→19:46)
[2017-08-10] MEDS ORDERED: POTASSIUM CHLORIDE (SR) 20 MEQ TAB PO STA ×2 (11:09→17:36)
--- NOTE | 2017-08-10 11:20 | PN ---
Date/Time of Note Date/Time of Note DATE: 08/10/17 TIME: 11:14 Assessment/Plan VTE Prophylaxis VTE Prophylaxis Intervention: SCD's, other (Eliquis on hold) Lines/Catheters IV C[facility]ter Type [facility]from [facility] [place]ine [place] Assessment/Plan Chief Complaint/Hosp Course 72-year-old male, with multiple comorbidities, who was transferred from assisted living place with status post ground-level fall with resultant right femoral neck fracture. 1. Mechanical fall with right femoral neck fracture. -Appreciate orthopedic evaluation and plan is right hip hemiarthroplasty. -Continue with pain medications. 2. Bilateral knee osteoarthritis. -Patient is being followed up with [facility] facility and is planning to have bilateral knee surgeries in August. 3. CAD with status post CABG -Continue medical optimization.(The coagulation+BB+ACEi+Statin) 4. History of aortic valve replacement. -Continue medical management 5. Pulmonary hypertension/CHF. Currently stable. -Continue with medical optimization. 6. Chronic back pain with history of laminectomy. -Continue as needed pain medications. 7. Parkinson's disease -Continue home medications and continue supportive care. 8. Dyslipidemia. -On statin 9. Hypertension. -Continue home antihypertensives. 10. Peripheral neuropathy. -Continue home medications. 11. Leukocytosis, most likely reactive. Stabilizing. 12. Hypokalemia. Replete and monitor. Plan: Plan is to proceed with right hip hemiarthroplasty with orthopedic team. Patient also had preop cardiac evaluation and is recommended to have surgical intervention., And holding Eliquis 24-48 hours prior to any surgical intervention and patient may resume Eliquis 48 hours post surgery. Preoperative risk stratification. Given patient's medical condition, patient is at intermediate to high risk risk for any untoward medical events for surgery. However, benefit likely outweigh risks and recommended to have surgical intervention. Also please note that cardiology clearance is indicated prior to any surgical intervention. dvt Prophylaxis: At this time, we will provide patient with SCDs. As per cardiology, at this time patient does not need any therapeutic anticoagulation in lieu of Eliquis. Patient is seen in collaboration with . Problems: Subjective 24 Hr Interval Summary Free Text/Dictation No acute distress Exam/Review of Systems Vital Signs Vitals Vital Signs Date Time Temp Pulse Resp B/P Pulse Ox O2 Delivery O2 Flow Rate FiO2 08/10/17 07:58 98.7 69 18 130/69 90 08/09/17 00:00 Room Air Intake and Output 08/09/17 08/09/17 08/10/17 15:00 23:00 07:00 Intake Total 890 ml 240 ml Output Total 1150 ml 1050 ml Balance -260 ml -810 ml Exam General: Chronically ill looking, obese male, not in any acute distress . HEENT: Normocephalic, Atraumatic, No laceration or hematoma; Eyes: PEERL, Conjunctiva clear, Anicteric sclera Neck: Supple without any lymphadenopathy, nontender, no JVD, no carotid bruits, trachea midline, no thyromegaly Cardiac: S1, S2 auscultated, regular rhythm and rate, no mumurs or gallop Pulmonary: Normal respiratory effort. Chest clear to auscultation bilaterally, no adventitious breath sounds GI: Abdomen normal to inspection. Soft, non tender, non- distended, no masses, no rebound tenderness or guarding. Bowel sounds active on all four quadrants Genitourinary: Deferred Extremities: With right hip tenderness and decreased range of motion on right lower extremity. With Parkinson's tremors on hands/arms. No cyanosis, clubbing , or edema. Pulses [2+] bilaterally. Neurologic: Alert to person, place, time, and situation. Affect appropriate, intact sensation. Skin: Clean,dry, and intact. No ecchymosis, no rashes, or lesions Results Result Diagram: 08/10/17 0545 08/10/17 0545 Results 24 hrs Laboratory Tests Test 08/10/17 05:45 White Blood Count 11.9 #H Red Blood Count 5.04 Hemoglobin 14.2 Hematocrit 43.9 Mean Corpuscular Volume 87.1 Mean Corpuscular Hemoglobin 28.2 L Mean Corpuscular Hemoglobin Concent 32.3 Red Cell Distribution Width 15.4 H Platelet Count 127 L Mean Platelet Volume 12.2 H Neutrophils % 80.5 H Lymphocytes % 8.1 L Monocytes % 6.5 Eosinophils % 4.0 Basophils % 0.5 Nucleated Red Blood Cells % 0.0 Neutrophils # 9.6 H Lymphocytes # 1.0 Monocytes # 0.8 Eosinophils # 0.5 Basophils # 0.1 Nucleated Red Blood Cells # 0.0 Sodium Level 141 Potassium Level 3.1 L Chloride Level 99 Carbon Dioxide Level 31 Anion Gap 14 Blood Urea Nitrogen 27 H Creatinine 1.25 H Glucose Level 151 Calcium Level 8.6 Magnesium Level 2.1 Total Bilirubin 1.4 H Direct Bilirubin 0.00 Indirect Bilirubin 1.4 H Aspartate Amino Transf (AST/SGOT) 23 Alanine Aminotransferase (ALT/SGPT) 20 Alkaline Phosphatase 63 Creatine Kinase 92 B-Type Natriuretic Peptide 3070 H Total Protein 6.9 Albumin 4.2 Globulin 2.70 Albumin/Globulin Ratio 1.55 Triglycerides Level 70 Cholesterol Level 125 LDL Cholesterol, Calculated 58 HDL Cholesterol 53 Cholesterol/HDL Ratio 2.3 Thyroid Stimulating Hormone (TSH) 0.802 Medications Medications Current Medications Morphine Sulfate (morphine) 2 mg Q4H PRN IV PAIN LEVEL 6-10 Last administered on 08/10/17 10:37; Admin Dose 2 MG; Start 08/09/17 at 00:30 Amantadine HCl (Symmetrel) 200 mg BID PO Last administered on 08/10/17 09:23 ; Admin Dose 200 MG; Start 08/09/17 at 21:00 Aspirin (Halfprin) 81 mg DAILY PO Last administered on 08/10/17 09:23; Admin Dose 81 MG; Start 08/10/17 at 09:00 Atorvastatin Calcium (Lipitor) 80 mg QHS PO Last administered on 08/09/17 20: 31; Admin Dose 80 MG; Start 08/09/17 at 21:00 Carbidopa/Levodopa (Sinemet (25/ 100)) 1 tab QID PO Last administered on 09:23; Admin Dose 1 TAB; Start 08/09/17 at 17:00 Eye Lubricant (Refresh Plus) 1 drop TID PRN BOTH EYES DRY EYES; Start at 15:00 Cholecalciferol (Vitamin D) 1,000 unit DAILY PO Last administered on 09:23; Admin Dose 1,000 UNIT; Start 08/10/17 at 09:00 Docusate Sodium (Colace) 250 mg BID PO Last administered on 08/10/17 09:23; Admin Dose 250 MG; Start 08/09/17 at 21:00 Gabapentin (Neurontin) 300 mg QHS PO Last administered on 08/09/17 20:30; Admin Dose 300 MG; Start 08/09/17 at 21:00 Polyethylene Glycol (Miralax) 17 gm DAILY PRN PO CONSTIPATION; Start 08/09/17 at 15:00 Senna (Senokot) 1 tab DAILY PRN PO CONSTIPATION; Start 08/09/17 at 15:00 Tamsulosin HCl (Flomax) 0.4 mg HS PO Last administered on 08/09/17 20:31; Admin Dose 0.4 MG; Start 08/09/17 at 21:00 Lactobacillus Acidophilus/ Rhamnosus (Culturelle) 1 cap BID PO Last administered on 08/10/17 09:23; Admin Dose 1 CAP; Start 08/09/17 at 14:54 Lisinopril (Zestril) 20 mg DAILY PO Last administered on 08/10/17 09:24; Admin Dose 20 MG; Start 08/09/17 at 14:49 Carvedilol (Coreg) 25 mg BID PO Last administered on 08/10/17 09:24; Admin Dose 25 MG; Start 08/09/17 at 14:50 Spironolactone (Aldactone) 25 mg DAILY PO Last administered on 08/10/17 09:23 ; Admin Dose 25 MG; Start 08/09/17 at 16:30 HARLEY ORLANDO NP Aug 10, 2017 11:20
--- NOTE | 2017-08-10 13:39 | PQ ---
Date/Time of Note Date/Time of Note DATE: 08/10/17 TIME: 13:36 Physician Query Documentation Clarification Dear Dr. Castano, A review of the medical record found a need for documentation clarification. progress note ----CHF without specificity Echo = "normal EF" Med = Lasix CXR - Mild pulm vascular congestion trace B/L LA edema Please clarify( if known ) the acuity of CHF. To facilitate accurate and complete coding, please carson ( x ) the suspected diagnosis that apply: ( ) Acute Systolic (Reduced EF) Heart Failure ( ICD10 I50.21 ) ( ) Acute Diastolic (Preserved EF) Heart Failure ( ICD10 I50.31 ) ( )Acute Combined Systolic & Diastolic Heart Failure ( ICD10 I50.41 ) ( ) Chronic Systolic (Reduced EF) Heart Failure ( ICD10 I50.22 ) ( ) Chronic Diastolic (Preserved EF) Heart Failure ( ICD10 I50.32 ) ( ) Chronic Combined Systolic & Diastolic Heart Failure ( ICD10 I50.42 ) ( ) Acute on Chronic Systolic (Reduced EF) Heart Failure ( ICD10 I50.23 ) ( )Acute on Chronic Diastolic (Preserved EF) Heart Failure ( ICD10 I50.33 ) ( ) Acute on Chronic Combined Systolic & Diastolic Heart Failure ( ICD10 I50.43 ) Please provide your response by clicking edit document, making your choice ( x ), click ok/save and finally click sign. You may also document your response on your progress notes. Thank you for your time. Gerald Macdonald RN, BSN, CCS, CCDS, CDIP Clinical Cabinet [facility] Health Information Management, CDI and Coding Services [phone] Room # 1525 - Coding [address]~ [address] GERALD MACDONALD Aug 10, 2017 13:39
--- NOTE | 2017-08-10 13:39 | PQ ---
Date/Time of Note Date/Time of Note DATE: 08/10/17 TIME: 13:36 Physician Query Documentation Clarification Dear Dr. Castano, A review of the medical record found a need for documentation clarification. progress note ----CHF without specificity Echo = "normal EF" Med = Lasix CXR - Mild pulm vascular congestion trace B/L LA edema Please clarify( if known ) the acuity of CHF. To facilitate accurate and complete coding, please carson ( x ) the suspected diagnosis that apply: ( ) Acute Systolic (Reduced EF) Heart Failure ( ICD10 I50.21 ) ( ) Acute Diastolic (Preserved EF) Heart Failure ( ICD10 I50.31 ) ( )Acute Combined Systolic & Diastolic Heart Failure ( ICD10 I50.41 ) ( ) Chronic Systolic (Reduced EF) Heart Failure ( ICD10 I50.22 ) ( ) Chronic Diastolic (Preserved EF) Heart Failure ( ICD10 I50.32 ) ( ) Chronic Combined Systolic & Diastolic Heart Failure ( ICD10 I50.42 ) ( ) Acute on Chronic Systolic (Reduced EF) Heart Failure ( ICD10 I50.23 ) ( )Acute on Chronic Diastolic (Preserved EF) Heart Failure ( ICD10 I50.33 ) ( ) Acute on Chronic Combined Systolic & Diastolic Heart Failure ( ICD10 I50.43 ) Please provide your response by clicking edit document, making your choice ( x ), click ok/save and finally click sign. You may also document your response on your progress notes. Thank you for your time. Gerald Macdonald RN, BSN, CCS, CCDS, CDIP Clinical Data Entry Associate Health Information Management, CDI and Coding Services [phone] Room # 1525 - Coding [address]~ [address] GERALD MACDONALD Aug 10, 2017 13:39
--- NOTE | 2017-08-10 13:39 | PQ ---
Date/Time of Note Date/Time of Note DATE: 08/10/17 TIME: 13:36 Physician Query Documentation Clarification Dear Dr. Castano, A review of the medical record found a need for documentation clarification. progress note ----CHF without specificity Echo = "normal EF" Med = Lasix CXR - Mild pulm vascular congestion trace B/L LA edema Please clarify( if known ) the acuity of CHF. To facilitate accurate and complete coding, please carson ( x ) the suspected diagnosis that apply: ( ) Acute Systolic (Reduced EF) Heart Failure ( ICD10 I50.21 ) ( ) Acute Diastolic (Preserved EF) Heart Failure ( ICD10 I50.31 ) ( )Acute Combined Systolic & Diastolic Heart Failure ( ICD10 I50.41 ) ( ) Chronic Systolic (Reduced EF) Heart Failure ( ICD10 I50.22 ) ( ) Chronic Diastolic (Preserved EF) Heart Failure ( ICD10 I50.32 ) ( ) Chronic Combined Systolic & Diastolic Heart Failure ( ICD10 I50.42 ) ( ) Acute on Chronic Systolic (Reduced EF) Heart Failure ( ICD10 I50.23 ) ( )Acute on Chronic Diastolic (Preserved EF) Heart Failure ( ICD10 I50.33 ) ( ) Acute on Chronic Combined Systolic & Diastolic Heart Failure ( ICD10 I50.43 ) Please provide your response by clicking edit document, making your choice ( x ), click ok/save and finally click sign. You may also document your response on your progress notes. Thank you for your time. Gerald Macdonald RN, BSN, CCS, CCDS, CDIP Clinical Business Support Health Information Management, CDI and Coding Services [phone] Room # 1525 - Coding [address]~ [address] GERALD MACDONALD Aug 10, 2017 13:39
--- NOTE | 2017-08-10 14:57 | RADRPT ---
Vent Rate: 76 bpm RR Interval: 0 msec TN Interval: 342 msec QRS Duration: 120 msec QT Interval: 432 msec QTC Interval: 486 msec P-R-T [place]: 88 - -74 - 81 degrees Sinus rhythm with 1st degree AV block RSR apos; or QR pattern in V1 suggests right ventricular conduction delay Left anterior fascicular block Inferior infarct , age undetermined Cannot rule out Anterior infarct , age undetermined Abnormal ECG Electronically Signed By: Nirmal Wolf [id number]
--- NOTE | 2017-08-10 14:57 | RADRPT ---
Vent Rate: 76 bpm RR Interval: 0 msec [place] Interval: 342 msec QRS Duration: 120 msec QT Interval: 432 msec QTC Interval: 486 msec P-R-T [place]: 88 - -74 - 81 degrees Sinus rhythm with 1st degree AV block RSR apos; or QR pattern in V1 suggests right ventricular conduction delay Left anterior fascicular block Inferior infarct , age undetermined Cannot rule out Anterior infarct , age undetermined Abnormal ECG Electronically Signed By: Nirmal Wolf [id number]
--- NOTE | 2017-08-10 14:57 | RADRPT ---
Vent Rate: 76 bpm RR Interval: 0 msec [place] Interval: 342 msec QRS Duration: 120 msec QT Interval: 432 msec QTC Interval: 486 msec P-R-T [place]: 88 - -74 - 81 degrees Sinus rhythm with 1st degree AV block RSR apos; or QR pattern in V1 suggests right ventricular conduction delay Left anterior fascicular block Inferior infarct , age undetermined Cannot rule out Anterior infarct , age undetermined Abnormal ECG Electronically Signed By: Nirmal Wolf [id number]
--- NOTE | 2017-08-10 17:39 | CONS ---
Date/Time of Note Date/Time of Note DATE: 08/10/17 TIME: 17:37 Consult Date/Type/Reason Admit Date/Time Aug 08, 2017 at 22:26 Initial Consult Date 08/09/17 Type of Consultation: cardiology Ordering Provider: HARLEY ORLANDO NP Subjective CARDIOLOGY FOLLOW UP NOTE: S: D/w staff and son rhythm was reviewed. pt denies any cp or pressure or palpitations to me. he denies any PND orthopnea to me. he still has hip pain and is awaiting surgery O; General: no acute distress HEENT: NC/AT. pupils are equal. round. NECK: NO JVD. no stridor. chest: s/p sternotomy CV: RRR. systolic murmur; no gallop or rubs. PULM: no wheezing or rhonchi. GI: SOFT, NT, ND, no rebound or guarding Extremity: trace B/L LE edema. no clubbing. neuro: awake and alert, OX3. Psych: calm and pleasant rectal: deferred : normal male ECHO personally reviewed: normal EF pulm HTN normal functioning AVR. xRAY: 1. ACUTE RIGHT FEMORAL NECK FRACTURE, with superior elevation of the right proximal femur. The femoral acetabular joint is intact. 2. Osteoarthritis of the left hip and lumbosacral spine. Objective Vital Signs Date Time Temp Pulse Resp B/P Pulse Ox O2 Delivery O2 Flow Rate FiO2 08/10/17 07:58 98.7 69 18 130/69 90 08/09/17 00:00 Room Air Intake and Output 08/09/17 08/09/17 08/10/17 15:00 23:00 07:00 Intake Total 890 ml 240 ml Output Total 1150 ml 1050 ml Balance -260 ml -810 ml Results/Medications Result Diagram: 08/10/17 0545 08/10/17 0545 Results 24 hrs Laboratory Tests Test 08/10/17 05:45 White Blood Count 11.9 #H Red Blood Count 5.04 Hemoglobin 14.2 Hematocrit 43.9 Mean Corpuscular Volume 87.1 Mean Corpuscular Hemoglobin 28.2 L Mean Corpuscular Hemoglobin Concent 32.3 Red Cell Distribution Width 15.4 H Platelet Count 127 L Mean Platelet Volume 12.2 H Neutrophils % 80.5 H Lymphocytes % 8.1 L Monocytes % 6.5 Eosinophils % 4.0 Basophils % 0.5 Nucleated Red Blood Cells % 0.0 Neutrophils # 9.6 H Lymphocytes # 1.0 Monocytes # 0.8 Eosinophils # 0.5 Basophils # 0.1 Nucleated Red Blood Cells # 0.0 Sodium Level 141 Potassium Level 3.1 L Chloride Level 99 Carbon Dioxide Level 31 Anion Gap 14 Blood Urea Nitrogen 27 H Creatinine 1.25 H Glucose Level 151 Calcium Level 8.6 Magnesium Level 2.1 Total Bilirubin 1.4 H Direct Bilirubin 0.00 Indirect Bilirubin 1.4 H Aspartate Amino Transf (AST/SGOT) 23 Alanine Aminotransferase (ALT/SGPT) 20 Alkaline Phosphatase 63 Creatine Kinase 92 B-Type Natriuretic Peptide 3070 H Total Protein 6.9 Albumin 4.2 Globulin 2.70 Albumin/Globulin Ratio 1.55 Triglycerides Level 70 Cholesterol Level 125 LDL Cholesterol, Calculated 58 HDL Cholesterol 53 Cholesterol/HDL Ratio 2.3 Thyroid Stimulating Hormone (TSH) 0.802 Medications Current Medications Morphine Sulfate (morphine) 2 mg Q4H PRN IV PAIN LEVEL 6-10 Last administered on 08/10/17 10:37; Admin Dose 2 MG; Start 08/09/17 at 00:30 Amantadine HCl (Symmetrel) 200 mg BID PO Last administered on 08/10/17 09:23 ; Admin Dose 200 MG; Start 08/09/17 at 21:00 Aspirin (Halfprin) 81 mg DAILY PO Last administered on 08/10/17 09:23; Admin Dose 81 MG; Start 08/10/17 at 09:00 Atorvastatin Calcium (Lipitor) 80 mg QHS PO Last administered on 08/09/17 20: 31; Admin Dose 80 MG; Start 08/09/17 at 21:00 Carbidopa/Levodopa (Sinemet (25/ 100)) 1 tab QID PO Last administered on 16:59; Admin Dose 1 TAB; Start 08/09/17 at 17:00 Eye Lubricant (Refresh Plus) 1 drop TID PRN BOTH EYES DRY EYES; Start at 15:00 Cholecalciferol (Vitamin D) 1,000 unit DAILY PO Last administered on 09:23; Admin Dose 1,000 UNIT; Start 08/10/17 at 09:00 Docusate Sodium (Colace) 250 mg BID PO Last administered on 08/10/17 09:23; Admin Dose 250 MG; Start 08/09/17 at 21:00 Gabapentin (Neurontin) 300 mg QHS PO Last administered on 08/09/17 20:30; Admin Dose 300 MG; Start 08/09/17 at 21:00 Polyethylene Glycol (Miralax) 17 gm DAILY PRN PO CONSTIPATION; Start 08/09/17 at 15:00 Senna (Senokot) 1 tab DAILY PRN PO CONSTIPATION; Start 08/09/17 at 15:00 Tamsulosin HCl (Flomax) 0.4 mg HS PO Last administered on 08/09/17 20:31; Admin Dose 0.4 MG; Start 08/09/17 at 21:00 Lactobacillus Acidophilus/ Rhamnosus (Culturelle) 1 cap BID PO Last administered on 08/10/17 09:23; Admin Dose 1 CAP; Start 08/09/17 at 14:54 Lisinopril (Zestril) 20 mg DAILY PO Last administered on 08/10/17 09:24; Admin Dose 20 MG; Start 08/09/17 at 14:49 Carvedilol (Coreg) 25 mg BID PO Last administered on 08/10/17 09:24; Admin Dose 25 MG; Start 08/09/17 at 14:50 Spironolactone (Aldactone) 25 mg DAILY PO Last administered on 08/10/17 09:23 ; Admin Dose 25 MG; Start 08/09/17 at 16:30 Assessment/Plan Chief Complaint/Hosp Course 1.CV preop evaluation 2. R Femoral neck fracture 3. CAD 4. HX CABG 5. HX AVR 6. HTN 7. Dyslipidemia 8. pulm HTN, CHF: chronic and stable due to diastolic heart failure 9./ HYPO K. cont coreg/ BELEM-I lasix x 1 now and will adjust hold eliquis for now. needs to be held 24-48 hours prior to the surgery. ( it has already been more than 48 hours). cont statin replace lytes prn pt is considered stable with moderate risk of CV events for the proposed ortho surgery. no further cardiac work up would be indicated or beneficial to pt. Thank you for his referral. I will continue to follow along with you. DEVENDRA DODGE MD [facility] Problems: DEVENDRA DODGE MD Aug 10, 2017 17:39
[2017-08-10] MEDS ORDERED: FUROSEMIDE 20 MG INJ IV ONE (18:00)
[2017-08-10 20:00] VITALS: BP_SYST 120; BP_SYST 140; BP_DIAS 65; BP_DIAS 72; RESP 18; RESP 19
[2017-08-10] MEDS: TAMSULOSIN (SR) 0.4 MG CAP PO SCH (21:10)
[2017-08-10] MEDS: ATORVASTATIN 80 MG TAB PO SCH (21:11)
[2017-08-11 02:00] VITALS: BP 137/78; RESP 18
[2017-08-11] MEDS: GABAPENTIN 300 MG CAP PO SCH ×2 (05:10→21:08)
[2017-08-11 07:28] VITALS: BP 155/76; RESP 18
[2017-08-11] MEDS: CHOLECALCIFEROL 1,000 UNIT TAB PO SCH (08:15)
[2017-08-11] MEDS: AMANTADINE 100 MG CAP PO SCH ×2 (08:15→21:07)
[2017-08-11] MEDS: LACTOBACILLUS RHAMNOSUS CAP PO SCH ×2 (08:15→21:08)
[2017-08-11] MEDS: DOCUSATE SODIUM 250 MG CAP PO SCH ×2 (08:15→21:07)
[2017-08-11] MEDS: SPIRONOLACTONE 25 MG TAB PO SCH (08:15)
[2017-08-11] MEDS: CARBIDOPA/LEVODOPA (25/100) TAB PO SCH ×4 (08:15→21:09)
[2017-08-11] MEDS: SENNA TAB PO PRN (08:15)
[2017-08-11] MEDS: LISINOPRIL 20 MG TAB PO SCH (08:16)
[2017-08-11] MEDS: ASPIRIN (EC) 81 MG TAB PO SCH (08:16)
[2017-08-11] MEDS: morphine 2 MG INJ IV PRN ×3 (08:17→21:12)
[2017-08-11] MEDS ORDERED: POTASSIUM CHLORIDE (SR) 20 MEQ TAB PO STA (09:41)
--- NOTE | 2017-08-11 09:46 | CONS ---
Date/Time of Note Date/Time of Note DATE: 08/11/17 TIME: 09:44 Consult Date/Type/Reason Admit Date/Time Aug 08, 2017 at 22:26 Initial Consult Date 08/09/17 Type of Consultation: cardiology Ordering Provider: HARLEY ORLANDO NP Subjective CARDIOLOGY FOLLOW UP NOTE: S: D/w staff pt denies any cp or pressure or palpitations to me. he denies any PND orthopnea to me. he still has hip pain and is awaiting surgery no bleeding O; General: no acute distress HEENT: NC/AT. pupils are equal. round. NECK: NO JVD. no stridor. chest: s/p sternotomy CV: RRR. systolic murmur; no gallop or rubs. PULM: no wheezing or rhonchi. GI: SOFT, NT, ND, no rebound or guarding Extremity: trace B/L LE edema. no clubbing. neuro: awake and alert, OX3. Psych: calm and pleasant rectal: deferred : normal male ECHO personally reviewed: normal EF pulm HTN normal functioning AVR. xRAY: 1. ACUTE RIGHT FEMORAL NECK FRACTURE, with superior elevation of the right proximal femur. The femoral acetabular joint is intact. 2. Osteoarthritis of the left hip and lumbosacral spine. Objective Vital Signs Date Time Temp Pulse Resp B/P Pulse Ox O2 Delivery O2 Flow Rate FiO2 08/11/17 07:28 98.5 73 18 155/76 96 08/09/17 00:00 Room Air Intake and Output 08/10/17 08/10/17 08/11/17 15:00 23:00 07:00 Intake Total 1050 ml 550 ml Output Total 1000 ml Balance 1050 ml -450 ml Results/Medications Result Diagram: 08/11/17 0534 08/11/17 0534 Results 24 hrs Laboratory Tests Test 08/11/17 05:34 White Blood Count 13.5 H Red Blood Count 5.19 Hemoglobin 15.0 Hematocrit 45.2 Mean Corpuscular Volume 87.1 Mean Corpuscular Hemoglobin 28.9 L Mean Corpuscular Hemoglobin Concent 33.2 Red Cell Distribution Width 14.8 H Platelet Count 131 L Mean Platelet Volume 12.4 H Neutrophils % 79.1 H Lymphocytes % 7.1 L Monocytes % 8.8 Eosinophils % 4.2 Basophils % 0.4 Nucleated Red Blood Cells % 0.0 Neutrophils # 10.7 H Lymphocytes # 1.0 Monocytes # 1.2 H Eosinophils # 0.6 H Basophils # 0.1 Nucleated Red Blood Cells # 0.0 Sodium Level 143 Potassium Level 3.6 Chloride Level 100 Carbon Dioxide Level 29 Anion Gap 18 H Blood Urea Nitrogen 26 H Creatinine 1.14 Glucose Level 160 Calcium Level 8.7 Magnesium Level 1.8 Total Bilirubin 1.3 Direct Bilirubin 0.00 Indirect Bilirubin 1.3 H Aspartate Amino Transf (AST/SGOT) 22 Alanine Aminotransferase (ALT/SGPT) 24 Alkaline Phosphatase 65 B-Type Natriuretic Peptide 1690 H Total Protein 7.2 Albumin 4.2 Globulin 3.00 Albumin/Globulin Ratio 1.40 Medications Current Medications Morphine Sulfate (morphine) 2 mg Q4H PRN IV PAIN LEVEL 6-10 Last administered on 08/11/17 08:17; Admin Dose 2 MG; Start 08/09/17 at 00:30 Amantadine HCl (Symmetrel) 200 mg BID PO Last administered on 08/11/17 08:15; Admin Dose 200 MG; Start 08/09/17 at 21:00 Aspirin (Halfprin) 81 mg DAILY PO Last administered on 08/11/17 08:16; Admin Dose 81 MG; Start 08/10/17 at 09:00 Atorvastatin Calcium (Lipitor) 80 mg QHS PO Last administered on 08/10/17 21: 11; Admin Dose 80 MG; Start 08/09/17 at 21:00 Carbidopa/Levodopa (Sinemet (25/ 100)) 1 tab QID PO Last administered on 08:15; Admin Dose 1 TAB; Start 08/09/17 at 17:00 Eye Lubricant (Refresh Plus) 1 drop TID PRN BOTH EYES DRY EYES; Start at 15:00 Cholecalciferol (Vitamin D) 1,000 unit DAILY PO Last administered on 08/11/17 08:15; Admin Dose 1,000 UNIT; Start 08/10/17 at 09:00 Docusate Sodium (Colace) 250 mg BID PO Last administered on 08/11/17 08:15; Admin Dose 250 MG; Start 08/09/17 at 21:00 Gabapentin (Neurontin) 300 mg QHS PO Last administered on 08/10/17 21:10; Admin Dose 300 MG; Start 08/09/17 at 21:00 Polyethylene Glycol (Miralax) 17 gm DAILY PRN PO CONSTIPATION; Start 08/09/17 at 15:00 Senna (Senokot) 1 tab DAILY PRN PO CONSTIPATION Last administered on 08/11/17 08:15; Admin Dose 1 TAB; Start 08/09/17 at 15:00 Tamsulosin HCl (Flomax) 0.4 mg HS PO Last administered on 08/10/17 21:10; Admin Dose 0.4 MG; Start 08/09/17 at 21:00 Lactobacillus Acidophilus/ Rhamnosus (Culturelle) 1 cap BID PO Last administered on 08/11/17 08:15; Admin Dose 1 CAP; Start 08/09/17 at 14:54 Lisinopril (Zestril) 20 mg DAILY PO Last administered on 08/11/17 08:16; Admin Dose 20 MG; Start 08/09/17 at 14:49 Carvedilol (Coreg) 25 mg BID PO Last administered on 08/11/17 08:16; Admin Dose 25 MG; Start 08/09/17 at 14:50 Spironolactone (Aldactone) 25 mg DAILY PO Last administered on 08/11/17 08:15 ; Admin Dose 25 MG; Start 08/09/17 at 16:30 Furosemide (Lasix) 20 mg DAILY IV ; Start 08/11/17 at 10:00; Status UNV Assessment/Plan Chief Complaint/Hosp Course 1.CV preop evaluation 2. R Femoral neck fracture 3. CAD 4. HX CABG 5. HX AVR 6. HTN 7. Dyslipidemia 8. pulm HTN, CHF: chronic and stable due to diastolic heart failure 9./ HYPO K. cont coreg/ BELEM-I lasix IV daily. will replace K AND Mg now hold eliquis for now. needs to be held 24-48 hours prior to the surgery. ( it has already been more than 48 hours). cont statin will repeat CXR today pt is considered stable with moderate risk of CV events for the proposed ortho surgery. no further cardiac work up would be indicated or beneficial to pt prior to the proposed ortho surgery . awaiting hip surgery DVT prophylaxis as per IM Thank you for his referral. I will continue to follow along with you. DEVENDRA DODGE MD [facility] Problems: DEVENDRA DODGE MD 1, 2017 09:45
[2017-08-11] MEDS: FUROSEMIDE 20 MG INJ IV SCH (10:34)
[2017-08-11] MEDS ORDERED: ENOXAPARIN 40 MG/0.4 ML SYG SC SCH (11:00)
[2017-08-11] MEDS ORDERED: MAGNESIUM SULFATE 2 GM/50 ML 50 ML IVPB ONE (11:00)
--- NOTE | 2017-08-11 11:57 | PN ---
Date/Time of Note Date/Time of Note DATE: 08/11/17 TIME: 11:52 Assessment/Plan VTE Prophylaxis VTE Prophylaxis Intervention: LMWH Lines/Catheters IV Catheter Type (from [facility]): Saline Lock Assessment/Plan Chief Complaint/Hosp Course 72-year-old male, with multiple comorbidities, who was transferred from assisted living place with status post ground-level fall with resultant right femoral neck fracture. 1. Mechanical fall with right femoral neck fracture. -Patient is scheduled for right hip hemiarthroplasty -Postoperative anticoagulation (recommend to resume Eliquis 48 hours postoperatively), weightbearing per orthopedic surgery. Continue with pain medications. 2. Bilateral knee osteoarthritis. -Patient is being followed up with [facility] facility and is planning to have bilateral knee surgeries in August. 3. CAD with status post CABG -Continue medical optimization.(The coagulation+BB+ACEi+Statin) 4. History of aortic valve replacement. 5. Chronic back pain with history of laminectomy. -Continue as needed pain medications. 6. Parkinson's disease -Continue home medications/supportive care. 7. Dyslipidemia. -On statin 8. Hypertension. -Continue home antihypertensives. 9. Peripheral neuropathy. -Continue home medications. 10. Leukocytosis, most likely reactive. Urine culture consistent with contamination. 11. Acute kidney injury, likely hemodynamics. Resolved. -Continue to monitor. Plan: Patient is for right hip hemiarthroplasty. Appreciate cardiology evaluation preoperatively. Preoperative risk stratification. Given patient's medical condition, patient is at intermediate to high risk risk for any untoward medical events for surgery. However, benefit likely outweigh risks and recommended to have surgical intervention. Patient also evaluated by cardiology for preop clearance. dvt Prophylaxis: Lovenox for now. Recommend to resume Eliquis 24-48 hours postoperatively. Patient is seen in collaboration with . Problems: Subjective 24 Hr Interval Summary Free Text/Dictation No acute distress. Exam/Review of Systems Vital Signs Vitals Vital Signs Date Time Temp Pulse Resp B/P Pulse Ox O2 Delivery O2 Flow Rate FiO2 08/11/17 07:28 98.5 73 18 155/76 96 08/09/17 00:00 Room Air Intake and Output 08/10/17 08/10/17 08/11/17 15:00 23:00 07:00 Intake Total 1050 ml 550 ml Output Total 1000 ml Balance 1050 ml -450 ml Exam General: Chronically ill looking, obese male, not in any acute distress . HEENT: Normocephalic, Atraumatic, No laceration or hematoma; Eyes: PEERL, Conjunctiva clear, Anicteric sclera Neck: Supple without any lymphadenopathy, nontender, no JVD, no carotid bruits, trachea midline, no thyromegaly Cardiac: S1, S2 auscultated, regular rhythm and rate, no mumurs or gallop Pulmonary: Normal respiratory effort. Chest clear to auscultation bilaterally, no adventitious breath sounds GI: Abdomen normal to inspection. Soft, non tender, non- distended, no masses, no rebound tenderness or guarding. Bowel sounds active on all four quadrants Genitourinary: Deferred Extremities: With right hip tenderness and decreased range of motion on right lower extremity. With Parkinson's tremors on hands/arms. No cyanosis, clubbing , or edema. Pulses [2+] bilaterally. Neurologic: Alert to person, place, time, and situation. Affect appropriate, intact sensation. Skin: Clean,dry, and intact. No ecchymosis, no rashes, or lesions Results Result Diagram: 08/11/17 0534 08/11/17 0534 Results 24 hrs Laboratory Tests Test 08/11/17 05:34 White Blood Count 13.5 H Red Blood Count 5.19 Hemoglobin 15.0 Hematocrit 45.2 Mean Corpuscular Volume 87.1 Mean Corpuscular Hemoglobin 28.9 L Mean Corpuscular Hemoglobin Concent 33.2 Red Cell Distribution Width 14.8 H Platelet Count 131 L Mean Platelet Volume 12.4 H Neutrophils % 79.1 H Lymphocytes % 7.1 L Monocytes % 8.8 Eosinophils % 4.2 Basophils % 0.4 Nucleated Red Blood Cells % 0.0 Neutrophils # 10.7 H Lymphocytes # 1.0 Monocytes # 1.2 H Eosinophils # 0.6 H Basophils # 0.1 Nucleated Red Blood Cells # 0.0 Sodium Level 143 Potassium Level 3.6 Chloride Level 100 Carbon Dioxide Level 29 Anion Gap 18 H Blood Urea Nitrogen 26 H Creatinine 1.14 Glucose Level 160 Calcium Level 8.7 Magnesium Level 1.8 Total Bilirubin 1.3 Direct Bilirubin 0.00 Indirect Bilirubin 1.3 H Aspartate Amino Transf (AST/SGOT) 22 Alanine Aminotransferase (ALT/SGPT) 24 Alkaline Phosphatase 65 B-Type Natriuretic Peptide 1690 H Total Protein 7.2 Albumin 4.2 Globulin 3.00 Albumin/Globulin Ratio 1.40 Medications Medications Current Medications Morphine Sulfate (morphine) 2 mg Q4H PRN IV PAIN LEVEL 6-10 Last administered on 08/11/17 08:17; Admin Dose 2 MG; Start 08/09/17 at 00:30 Amantadine HCl (Symmetrel) 200 mg BID PO Last administered on 08/11/17 08:15; Admin Dose 200 MG; Start 08/09/17 at 21:00 Aspirin (Halfprin) 81 mg DAILY PO Last administered on 08/11/17 08:16; Admin Dose 81 MG; Start 08/10/17 at 09:00 Atorvastatin Calcium (Lipitor) 80 mg QHS PO Last administered on 08/10/17 21: 11; Admin Dose 80 MG; Start 08/09/17 at 21:00 Carbidopa/Levodopa (Sinemet (25/ 100)) 1 tab QID PO Last administered on 08:15; Admin Dose 1 TAB; Start 08/09/17 at 17:00 Eye Lubricant (Refresh Plus) 1 drop TID PRN BOTH EYES DRY EYES; Start at 15:00 Cholecalciferol (Vitamin D) 1,000 unit DAILY PO Last administered on 08/11/17 08:15; Admin Dose 1,000 UNIT; Start 08/10/17 at 09:00 Docusate Sodium (Colace) 250 mg BID PO Last administered on 08/11/17 08:15; Admin Dose 250 MG; Start 08/09/17 at 21:00 Gabapentin (Neurontin) 300 mg QHS PO Last administered on 08/10/17 21:10; Admin Dose 300 MG; Start 08/09/17 at 21:00 Polyethylene Glycol (Miralax) 17 gm DAILY PRN PO CONSTIPATION; Start 08/09/17 at 15:00 Senna (Senokot) 1 tab DAILY PRN PO CONSTIPATION Last administered on 08/11/17 08:15; Admin Dose 1 TAB; Start 08/09/17 at 15:00 Tamsulosin HCl (Flomax) 0.4 mg HS PO Last administered on 08/10/17 21:10; Admin Dose 0.4 MG; Start 08/09/17 at 21:00 Lactobacillus Acidophilus/ Rhamnosus (Culturelle) 1 cap BID PO Last administered on 08/11/17 08:15; Admin Dose 1 CAP; Start 08/09/17 at 14:54 Lisinopril (Zestril) 20 mg DAILY PO Last administered on 08/11/17 08:16; Admin Dose 20 MG; Start 08/09/17 at 14:49 Carvedilol (Coreg) 25 mg BID PO Last administered on 08/11/17 08:16; Admin Dose 25 MG; Start 08/09/17 at 14:50 Spironolactone (Aldactone) 25 mg DAILY PO Last administered on 08/11/17 08:15 ; Admin Dose 25 MG; Start 08/09/17 at 16:30 Furosemide 20 mg 20 mg DAILY IV Last administered on 08/11/17 10:34; Admin Dose 20 MG; Start 08/11/17 at 10:00 Magnesium Sulfate (Magnesium Sulfate 2 Gm/50 ml) 50 ml @ 25 mls/hr ONCE ONCE IVPB Last administered on 08/11/17 10:34; Admin Dose 25 MLS/HR; Start at 11:00; Stop 08/11/17 at 12:59 Enoxaparin Sodium (Lovenox) 40 mg DAILY SC ; Start 08/11/17 at 11:00 HARLEY ORLANDO NP Aug 11, 2017 11:57
[2017-08-11 15:01] VITALS: BP 122/64; RESP 20
--- NOTE | 2017-08-11 16:16 | RADRPT ---
PROCEDURE: XR Chest. CLINICAL INDICATION: Pain. Hip fracture. TECHNIQUE: Chest x-ray, single view. COMPARISON: 08/08/2017. FINDINGS: The cardiac silhouette is slightly magnified and unchanged in size and configuration. Mild aortic ar ch atherosclerotic calcification is observed. Mild central pulmonary vascular prominence is observe d and slightly decreased. There is no focal pulmonary parenchymal opacification or evidence of layer ing pleural effusion. Median sternotomy wires are in place. Degenerative changes of the shoulders a re observed. IMPRESSION: Thoracic aortic atherosclerosis. Mild central pulmonary vascular prominence, decreased. RPTAT: AAQQ .Irais Toledo MD, MD Date Time Electronically viewed and signed by .Irais Toledo MD, on 08/11/2017 16:15 .T/
[2017-08-11 20:10] VITALS: BP 171/78; RESP 20
[2017-08-11] MEDS: ATORVASTATIN 80 MG TAB PO SCH (21:07)
[2017-08-11] MEDS: TAMSULOSIN (SR) 0.4 MG CAP PO SCH (21:08)
[2017-08-12] VITALS (24 sets, daily range): BP systolic 112–163; BP diastolic 64–81; PULSE 63–78; RESP 15–23
[2017-08-12] MEDS ORDERED: LIDOCAINE 2% (SDV) 5 ML INJ ONE (07:00)
[2017-08-12] MEDS: GABAPENTIN 300 MG CAP PO SCH ×2 (07:00→21:13)
[2017-08-12] MEDS ORDERED: PROPOFOL 200 MG INJ ONE (07:00)
[2017-08-12] MEDS ORDERED: ONDANSETRON 4 MG INJ ONE (07:00)
[2017-08-12] MEDS ORDERED: GLYCOPYRROLATE 0.4 MG INJ ONE (07:00)
[2017-08-12] MEDS ORDERED: NEOSTIGMINE 3 MG/3 ML SYRINGE ONE (07:00)
--- NOTE | 2017-08-12 07:35 | HPN ---
Date/Time of Note Date/Time of Note DATE: 08/12/17 TIME: 07:34 Interval H&P Admission Note Pt. seen H&P reviewed: No system changes SHRADDHA MAO MD Aug 12, 2017 07:35
[2017-08-12] MEDS ORDERED: FENTAnyl 50 MCG/ML VIAL ONE (07:37)
[2017-08-12] MEDS ORDERED: morphine SULFATE/PF (10 MG/10 ML) INJ ONE (07:37)
[2017-08-12] MEDS ORDERED: MIDAZOLAM 1 MG/ML 2 ML INJ ONE (07:38)
[2017-08-12] MEDS ORDERED: PHENYLephrine (100 MCG/ML) 5ML SYG ONE (08:03)
[2017-08-12] MEDS ORDERED: DEXAMETHASONE 4 MG/ML 1 ML INJ ONE (08:23)
[2017-08-12] MEDS ORDERED: CEFAZOLIN 1 GM INJ ONE (08:23)
[2017-08-12] MEDS ORDERED: POLYMYXIN/BACITRACIN 1L IRRIG IRR ONE (08:24)
[2017-08-12] MEDS ORDERED: METOCLOPRAMIDE 10 MG INJ IV PRN (10:30)
[2017-08-12] MEDS ORDERED: DIPHENHYDRAMINE 50 MG INJ IV PRN (10:30)
[2017-08-12] MEDS ORDERED: NACL 0.9% 3 ML SYG IV SCH (10:30)
[2017-08-12] MEDS ORDERED: ONDANSETRON 4 MG INJ IV PRN (10:30)
[2017-08-12] MEDS ORDERED: KETOROLAC 30 MG INJ IV PRN (10:30)
[2017-08-12] MEDS ORDERED: MEPERIDINE 25 MG INJ IV PRN (10:30)
[2017-08-12] MEDS ORDERED: HYDROmorphONE (0.2 MG/ML) 10ML SYG IV PRN ×3 (10:30)
[2017-08-12] MEDS ORDERED: LABETALOL HCL 20MG INJ IV PRN (10:30)
[2017-08-12] MEDS ORDERED: EPHEDrine SULFATE 50 MG/5 ML SYG IV PRN (10:30)
[2017-08-12] MEDS ORDERED: hydrALAzine 20 MG INJ IV PRN (10:30)
--- NOTE | 2017-08-12 10:36 | SIPON ---
Date/Time of Note Date/Time of Note DATE: 08/12/17 TIME: 10:30 Operative Report Preoperative Diagnosis ffemoral neck fracture of Rt. hip Postoperative Diagnosis same as pre op Operation/Procedure Performed hemiarthroplasty of Rt. hip Surgeon see signature line power plant assistant none Anesthesia: general Estimated blood loss: 250 - 300 ml's Transfusion Required none none Specimen femoral head Grafts/Implants bipolanone Complications none SHRADDHA MAO MD Aug 12, 2017 10:36
--- NOTE | 2017-08-12 10:36 | SIPON ---
Date/Time of Note Date/Time of Note DATE: 08/12/17 TIME: 10:30 Operative Report Preoperative Diagnosis ffemoral neck fracture of Rt. hip Postoperative Diagnosis same as pre op Operation/Procedure Performed hemiarthroplasty of Rt. hip Surgeon see signature line patient support assistant none Anesthesia: general Estimated blood loss: 250 - 300 ml's Transfusion Required none none Specimen femoral head Grafts/Implants bipolanone Complications none SHRADDHA MAO MD Aug 12, 2017 10:36
--- NOTE | 2017-08-12 10:36 | SIPON ---
Date/Time of Note Date/Time of Note DATE: 08/12/17 TIME: 10:30 Operative Report Preoperative Diagnosis ffemoral neck fracture of Rt. hip Postoperative Diagnosis same as pre op Operation/Procedure Performed hemiarthroplasty of Rt. hip Surgeon see signature line pharmacy sales assistant none Anesthesia: general Estimated blood loss: 250 - 300 ml's Transfusion Required none none Specimen femoral head Grafts/Implants bipolanone Complications none SHRADDHA MAO MD Aug 12, 2017 10:36
[2017-08-12] MEDS: CEFAZOLIN 1 GM/50 ML (PMX) 50 ML IVPB SCH ×2 (10:43→18:43)
--- NOTE | 2017-08-12 10:46 | PN ---
Date/Time of Note Date/Time of Note DATE: 08/12/17 TIME: 10:45 Assessment/Plan VTE Prophylaxis VTE Prophylaxis Intervention: LMWH Lines/Catheters IV [facility] Type (from [facility]): Saline Lock Urinary Cath still in place: Yes Reason Cath still needed: other (indicate) Assessment/Plan Chief Complaint/Hosp Course 72-year-old male, with multiple comorbidities, who was transferred from assisted living place with status post ground-level fall with resultant right femoral neck fracture. 1. Mechanical fall with right femoral neck fracture. -Patient is scheduled for right hip hemiarthroplasty today. -Postoperative anticoagulation (recommend to resume Eliquis 48 hours postoperatively), weightbearing per orthopedic surgery. Continue with pain medications. 2. Bilateral knee osteoarthritis. -Patient is being followed up with [facility] facility and is planning to have bilateral knee surgeries in August. 3. CAD with status post CABG -Continue medical optimization.(The coagulation+BB+ACEi+Statin) 4. History of aortic valve replacement. 5. Chronic back pain with history of laminectomy. -Continue as needed pain medications. 6. Parkinson's disease -Continue home medications/supportive care. 7. Dyslipidemia. -On statin 8. Hypertension. -Continue home antihypertensives. 9. Peripheral neuropathy. -Continue home medications. 10. Leukocytosis, most likely reactive. Urine culture consistent with contamination. 11. Acute kidney injury, likely hemodynamics. Resolved. -Continue to monitor. Plan: Patient is for right hip hemiarthroplasty. Appreciate cardiology evaluation preoperatively. Preoperative risk stratification. Given patient's medical condition, patient is at intermediate to high risk risk for any untoward medical events for surgery. However, benefit likely outweigh risks and recommended to have surgical intervention. Patient also evaluated by cardiology for preop clearance. dvt Prophylaxis: Lovenox for now. Recommend to resume Eliquis 24-48 hours postoperatively. Patient is seen in collaboration with . Problems: Subjective 24 Hr Interval Summary Free Text/Dictation No acute distress. Patient is for ORIF today. Exam/Review of Systems Vital Signs Vitals Vital Signs Date Time Temp Pulse Resp B/P Pulse Ox O2 Delivery O2 Flow Rate FiO2 08/12/17 10:27 70 20 140/70 96 Room Air 08/12/17 10:07 98.0 Intake and Output 08/11/17 08/11/17 08/12/17 15:00 23:00 07:00 Intake Total 50 ml 840 ml 240 ml Output Total 950 ml 500 ml Balance 50 ml -110 ml -260 ml Exam General: Chronically ill looking, obese male, not in any acute distress . HEENT: Normocephalic, Atraumatic, No laceration or hematoma; Eyes: PEERL, Conjunctiva clear, Anicteric sclera Neck: Supple without any lymphadenopathy, nontender, no JVD, no carotid bruits, trachea midline, no thyromegaly Cardiac: S1, S2 auscultated, regular rhythm and rate, no mumurs or gallop Pulmonary: Normal respiratory effort. Chest clear to auscultation bilaterally, no adventitious breath sounds GI: Abdomen normal to inspection. Soft, non tender, non- distended, no masses, no rebound tenderness or guarding. Bowel sounds active on all four quadrants Genitourinary: Deferred Extremities: With right hip tenderness and decreased range of motion on right lower extremity. With Parkinson's tremors on hands/arms. No cyanosis, clubbing , or edema. Pulses [2+] bilaterally. Neurologic: Alert to person, place, time, and situation. Affect appropriate, intact sensation. Skin: Clean,dry, and intact. No ecchymosis, no rashes, or lesions Results Result Diagram: 08/11/17 0534 08/12/17 0544 Results 24 hrs Laboratory Tests Test 08/12/17 05:44 Sodium Level 141 Potassium Level 3.7 Chloride Level 100 Carbon Dioxide Level 27 Anion Gap 18 H Blood Urea Nitrogen 29 H Creatinine 1.05 Glucose Level 137 Calcium Level 8.8 Magnesium Level 2.0 Total Bilirubin 1.5 H Direct Bilirubin 0.00 Indirect Bilirubin 1.5 H Aspartate Amino Transf (AST/SGOT) 19 Alanine Aminotransferase (ALT/SGPT) 23 Alkaline Phosphatase 65 B-Type Natriuretic Peptide 1210 H Total Protein 7.4 Albumin 4.0 Globulin 3.40 H Albumin/Globulin Ratio 1.17 Medications Medications Current Medications Morphine Sulfate (morphine) 2 mg Q4H PRN IV PAIN LEVEL 6-10 Last administered on 08/11/17 21:12; Admin Dose 2 MG; Start 08/09/17 at 00:30 Amantadine HCl (Symmetrel) 200 mg BID PO Last administered on 08/11/17 21:07; Admin Dose 200 MG; Start 08/09/17 at 21:00 Aspirin (Halfprin) 81 mg DAILY PO Last administered on 08/11/17 08:16; Admin Dose 81 MG; Start 08/10/17 at 09:00 Atorvastatin Calcium (Lipitor) 80 mg QHS PO Last administered on 08/11/17 21: 07; Admin Dose 80 MG; Start 08/09/17 at 21:00 Carbidopa/Levodopa (Sinemet (25/ 100)) 1 tab QID PO Last administered on 21:09; Admin Dose 1 TAB; Start 08/09/17 at 17:00 Eye Lubricant (Refresh Plus) 1 drop TID PRN BOTH EYES DRY EYES; Start at 15:00 Cholecalciferol (Vitamin D) 1,000 unit DAILY PO Last administered on 08/11/17 08:15; Admin Dose 1,000 UNIT; Start 08/10/17 at 09:00 Docusate Sodium (Colace) 250 mg BID PO Last administered on 08/11/17 21:07; Admin Dose 250 MG; Start 08/09/17 at 21:00 Gabapentin (Neurontin) 300 mg QHS PO Last administered on 08/11/17 21:08; Admin Dose 300 MG; Start 08/09/17 at 21:00 Polyethylene Glycol (Miralax) 17 gm DAILY PRN PO CONSTIPATION; Start 08/09/17 at 15:00 Senna (Senokot) 1 tab DAILY PRN PO CONSTIPATION Last administered on 08/11/17 08:15; Admin Dose 1 TAB; Start 08/09/17 at 15:00 Tamsulosin HCl (Flomax) 0.4 mg HS PO Last administered on 08/11/17 21:08; Admin Dose 0.4 MG; Start 08/09/17 at 21:00 Lactobacillus Acidophilus/ Rhamnosus (Culturelle) 1 cap BID PO Last administered on 08/11/17 21:08; Admin Dose 1 CAP; Start 08/09/17 at 14:54 Lisinopril (Zestril) 20 mg DAILY PO Last administered on 08/11/17 08:16; Admin Dose 20 MG; Start 08/09/17 at 14:49 Carvedilol (Coreg) 25 mg BID PO Last administered on 08/11/17 21:08; Admin Dose 25 MG; Start 08/09/17 at 14:50 Spironolactone (Aldactone) 25 mg DAILY PO Last administered on 08/11/17 08:15 ; Admin Dose 25 MG; Start 08/09/17 at 16:30 Furosemide (Lasix) 20 mg DAILY IV Last administered on 08/11/17 10:34; Admin Dose 20 MG; Start 08/11/17 at 10:00 Enoxaparin Sodium 40 mg 40 mg DAILY SC Last administered on 08/11/17 12:49; Admin Dose 40 MG; Start 08/11/17 at 11:00 Sodium Chloride 1,000 ml @ 80 mls/hr [id number] IV ; Start 08/12/17 at 10:12; Status UNV Cefazolin Sodium (Ancef 1 Gm/50 ml (Pmx)) 50 ml @ 100 mls/hr Q8H IVPB ; Start 08/12/17 at 10:30; Stop 08/13/17 at 02:59 Enoxaparin Sodium (Lovenox) 40 mg DAILY SC ; Start 08/13/17 at 09:00; Status UNV Morphine Sulfate (morphine) 3 mg Q3H PRN IV PAIN; Start 08/12/17 at 10:30; Status UNV Acetaminophen/ Hydrocodone Bitart ([place] (10/325)) 1 tab Q4H PRN PO PAIN; Start 08/12/17 at 10:30; Status UNV HARLEY ORLANDO NP Aug 12, 2017 10:46
--- NOTE | 2017-08-12 11:42 | RADRPT ---
PROCEDURE: XR Right Hip. CLINICAL INDICATION: Status post hip replacement TECHNIQUE: AP view of the right hip was obtained. The images reviewed on a PACS workstation. COMPARISON: Pelvis x-ray August 09, 2017 FINDINGS: Right hip replacement is identified. Prosthetic components are in appropriate position and alignmen t. No fractures or destructive lesions are observed. Soft tissue air is procedural in nature. IMPRESSION: Status post right hip replacement. Prosthetic components are in appropriate position and alignment. RPTAT: AA .Blas Mejia MD, Date Time Electronically viewed and signed by .Blas Mejia MD, on 08/12/2017 11:41 .P/
[2017-08-12] MEDS: SOD CHLORIDE 0.9% 1,000 ML IV SCH ×2 (11:56→22:42)
[2017-08-12] MEDS: CARBIDOPA/LEVODOPA (25/100) TAB PO SCH ×4 (13:00→21:13)
--- NOTE | 2017-08-12 13:12 | OPR ---
DATE OF OPERATION: 08/12/2017 PREOPERATIVE DIAGNOSIS: Femoral neck fracture of the right hip. POSTOPERATIVE DIAGNOSIS: Femoral neck fracture of the right hip. OPERATION PERFORMED: Hemiarthroplasty of the right hip. ANESTHESIA: General anesthesia. SURGEON: Rupali Duran MD PROCEDURE AND FINDINGS: Under anesthesia, the patient was placed in left lateral decubitus position with the right side up. Usual prep and drape was done exposing the right hip and right lower extremity. The right hip was approached through the usual posterior lateral incision after splitting gluteal muscles and detaching short external rotator. Joint was opened obvious femoral neck fracture was identified. The head was removed and the measurements revealed that the size of the head was about 45 mm in diameter. After cleaning the acetabular cavity which was essentially within normal limits, trial reduction was carried out with the various size of the bipolar cup and 57 mm bipolar cup was seems to be providing best fit. After removing trial bipolar cup and after packing the acetabular cavity with Ray-Sosa sponges, attention was then directed to the proximal femur. Following initial preparation with a box osteotome and hands and dial inspector, further preparation was carried out using increasing size of broaches with the size 11 broach and trial components were assembled and the joint was reduced. After several trials, we settle with the 57 mm bipolar cup. After removing all the trial components, the actual stem in the size of 11 in the high offset setting was pounded in. This was connected to 0 neck 57 mm bipolar cup. The joint was reduced. Range of motion and the stability in the leg length was satisfactory. After reattaching short external rotator and closing the capsules and after irrigation and hemostasis, further closure was carried out using 0 Vicryl for muscle and fascia and 2-0 Vicryl for subcutaneous tissues. Final skin closure was carried out with skin salvatore. Usual sterile pressure dressings were applied. The patient tolerated the entire procedure very well and was sent to the recovery room in excellent condition. Dictated By: In Britt Duran MD /[email or web address] /Document#: [id number]
[2017-08-12] MEDS: SPIRONOLACTONE 25 MG TAB PO SCH (13:24)
[2017-08-12] MEDS: FUROSEMIDE 20 MG INJ IV SCH (13:24)
[2017-08-12] MEDS: DOCUSATE SODIUM 250 MG CAP PO SCH ×2 (13:24→21:11)
[2017-08-12] MEDS: LACTOBACILLUS RHAMNOSUS CAP PO SCH ×2 (13:25→21:11)
[2017-08-12] MEDS: AMANTADINE 100 MG CAP PO SCH ×2 (13:25→21:11)
[2017-08-12] MEDS: ASPIRIN (EC) 81 MG TAB PO SCH (13:25)
[2017-08-12] MEDS: CHOLECALCIFEROL 1,000 UNIT TAB PO SCH (13:26)
[2017-08-12] MEDS: LISINOPRIL 20 MG TAB PO SCH (13:27)
[2017-08-12] MEDS: TAMSULOSIN (SR) 0.4 MG CAP PO SCH (21:10)
[2017-08-12] MEDS: ATORVASTATIN 80 MG TAB PO SCH (21:10)
[2017-08-12] MEDS: morphine 4 MG/ML VIAL IV PRN (21:15)
[2017-08-13] MEDS: morphine 4 MG/ML VIAL IV PRN ×3 (00:37→13:39)
[2017-08-13] MEDS: SOD CHLORIDE 0.9% 1,000 ML IV SCH (01:48)
[2017-08-13] MEDS: CEFAZOLIN 1 GM/50 ML (PMX) 50 ML IVPB SCH (01:49)
[2017-08-13 03:05] VITALS: BP 149/87; RESP 18
[2017-08-13] MEDS: GABAPENTIN 300 MG CAP PO SCH ×2 (06:14→22:16)
[2017-08-13] MEDS: SENNA TAB PO PRN (06:14)
[2017-08-13] MEDS: HYDROCODONE/APAP (10/325) TAB PO PRN (06:15)
[2017-08-13 07:55] VITALS: BP 175/79; RESP 18
[2017-08-13] MEDS: ASPIRIN (EC) 81 MG TAB PO SCH (08:40)
[2017-08-13] MEDS: AMANTADINE 100 MG CAP PO SCH ×2 (08:40→22:16)
[2017-08-13] MEDS: DOCUSATE SODIUM 250 MG CAP PO SCH ×2 (08:40→22:16)
[2017-08-13] MEDS: CHOLECALCIFEROL 1,000 UNIT TAB PO SCH (08:40)
[2017-08-13] MEDS: CARBIDOPA/LEVODOPA (25/100) TAB PO SCH ×4 (08:40→22:16)
[2017-08-13] MEDS: LACTOBACILLUS RHAMNOSUS CAP PO SCH ×2 (08:40→22:16)
[2017-08-13] MEDS: SPIRONOLACTONE 25 MG TAB PO SCH (08:40)
[2017-08-13] MEDS: LISINOPRIL 20 MG TAB PO SCH (08:40)
[2017-08-13] MEDS: FUROSEMIDE 20 MG INJ IV SCH (08:41)
[2017-08-13] MEDS: ENOXAPARIN 30 MG/0.3 ML SYG SC SCH (08:48)
--- NOTE | 2017-08-13 10:25 | PN ---
Date/Time of Note Date/Time of Note DATE: 08/13/17 TIME: 10:21 Assessment/Plan VTE Prophylaxis VTE Prophylaxis Intervention: LMWH Lines/Catheters IV Catheter Type (from Nrs): Peripheral IV Urinary Cath still in place: Yes Reason Cath still needed: other (indicate) Assessment/Plan Chief Complaint/Hosp Course 72-year-old male, with multiple comorbidities, who was transferred from assisted living place with status post ground-level fall with resultant right femoral neck fracture. 1. Mechanical fall with right femoral neck fracture. -Patient is status post right hip hemiarthroplasty 08/12/17 -Postoperative anticoagulation (recommend to resume Eliquis in next 24 hrs hours postoperatively), weightbearing per orthopedic surgery. Continue with pain medications. 2. Bilateral knee osteoarthritis. -Patient is being followed up with [facility] facility and is planning to have bilateral knee surgeries in August. 3. CAD with status post CABG -Continue medical optimization.(The coagulation+BB+ACEi+Statin) 4. History of aortic valve replacement. 5. Chronic back pain with history of laminectomy. -Continue as needed pain medications. 6. Parkinson's disease -Continue home medications/supportive care. 7. Dyslipidemia. -On statin 8. Hypertension. -Continue home antihypertensives. 9. Peripheral neuropathy. -Continue home medications. 10. Leukocytosis, most likely reactive. Urine culture consistent with contamination. 11. Acute kidney injury, likely hemodynamics. Resolved. -Continue to monitor. Plan: Follow-up with orthopedic post op weightbearing. dvt Prophylaxis: Lovenox for now. Recommend to resume Eliquis in next 24hours Patient is seen in collaboration with . Problems: Subjective 24 Hr Interval Summary Free Text/Dictation No acute distress.Doing well. Exam/Review of Systems Vital Signs Vitals Vital Signs Date Time Temp Pulse Resp B/P Pulse Ox O2 Delivery O2 Flow Rate FiO2 08/13/17 07:55 98.2 70 18 175/79 96 08/12/17 16:00 Room Air Intake and Output 08/12/17 08/12/17 08/13/17 15:00 23:00 07:00 Intake Total 1050 ml 1490 ml 720 ml Output Total 350 ml 600 ml 750 ml Balance 700 ml 890 ml -30 ml Exam General: Chronically ill looking, obese male, not in any acute distress . HEENT: Normocephalic, Atraumatic, No laceration or hematoma; Eyes: PEERL, Conjunctiva clear, Anicteric sclera Neck: Supple without any lymphadenopathy, nontender, no JVD, no carotid bruits, trachea midline, no thyromegaly Cardiac: S1, S2 auscultated, regular rhythm and rate, no mumurs or gallop Pulmonary: Normal respiratory effort. Chest clear to auscultation bilaterally, no adventitious breath sounds GI: Abdomen normal to inspection. Soft, non tender, non- distended, no masses, no rebound tenderness or guarding. Bowel sounds active on all four quadrants Genitourinary: Deferred Extremities: With right hip tenderness and decreased range of motion on right lower extremity. With Parkinson's tremors on hands/arms. No cyanosis, clubbing , or edema. Pulses [2+] bilaterally. Neurologic: Alert to person, place, time, and situation. Affect appropriate, intact sensation. Skin: Clean,dry, and intact. No ecchymosis, no rashes, or lesions Results Result Diagram: 08/13/17 0534 08/13/17 0534 Results 24 hrs Laboratory Tests Test 08/12/17 10:50 08/13/17 05:34 White Blood Count 13.3 H 15.7 H Red Blood Count 4.83 4.79 Hemoglobin 14.2 13.4 L Hematocrit 42.3 41.6 L Mean Corpuscular Volume 87.6 86.8 Mean Corpuscular Hemoglobin 29.4 28.0 L Mean Corpuscular Hemoglobin Concent 33.6 32.2 Red Cell Distribution Width 14.7 H 14.9 H Platelet Count 148 154 Mean Platelet Volume 12.1 H 12.3 H Neutrophils % 89.8 H 80.8 H Lymphocytes % 2.8 L 4.8 L Monocytes % 5.1 13.6 H Eosinophils % 1.4 0.1 Basophils % 0.4 0.1 Nucleated Red Blood Cells % 0.0 0.0 Neutrophils # 11.9 H 12.7 H Lymphocytes # 0.4 L 0.8 Monocytes # 0.7 2.1 H Eosinophils # 0.2 0.0 Basophils # 0.1 0.0 Nucleated Red Blood Cells # 0.0 0.0 Sodium Level 142 Potassium Level 4.1 Chloride Level 102 Carbon Dioxide Level 29 Anion Gap 15 Blood Urea Nitrogen 33 H Creatinine 1.01 Glucose Level 190 Calcium Level 8.6 Magnesium Level 2.0 Medications Medications Current Medications Amantadine HCl (Symmetrel) 200 mg BID PO Last administered on 08/13/17 08:40; Admin Dose 200 MG; Start 08/09/17 at 21:00 Aspirin (Halfprin) 81 mg DAILY PO Last administered on 08/13/17 08:40; Admin Dose 81 MG; Start 08/10/17 at 09:00 Atorvastatin Calcium (Lipitor) 80 mg QHS PO Last administered on 08/12/17 21: 10; Admin Dose 80 MG; Start 08/09/17 at 21:00 Carbidopa/Levodopa (Sinemet (25/ 100)) 1 tab QID PO Last administered on 08:40; Admin Dose 1 TAB; Start 08/09/17 at 17:00 Eye Lubricant (Refresh Plus) 1 drop TID PRN BOTH EYES DRY EYES; Start at 15:00 Cholecalciferol (Vitamin D) 1,000 unit DAILY PO Last administered on 08/13/17 08:40; Admin Dose 1,000 UNIT; Start 08/10/17 at 09:00 Docusate Sodium (Colace) 250 mg BID PO Last administered on 08/13/17 08:40; Admin Dose 250 MG; Start 08/09/17 at 21:00 Gabapentin (Neurontin) 300 mg QHS PO Last administered on 08/12/17 21:13; Admin Dose 300 MG; Start 08/09/17 at 21:00 Polyethylene Glycol (Miralax) 17 gm DAILY PRN PO CONSTIPATION; Start 08/09/17 at 15:00 Senna (Senokot) 1 tab DAILY PRN PO CONSTIPATION Last administered on 08/13/17 06:14; Admin Dose 1 TAB; Start 08/09/17 at 15:00 Tamsulosin HCl (Flomax) 0.4 mg HS PO Last administered on 08/12/17 21:10; Admin Dose 0.4 MG; Start 08/09/17 at 21:00 Lactobacillus Acidophilus/ Rhamnosus (Culturelle) 1 cap BID PO Last administered on 08/13/17 08:40; Admin Dose 1 CAP; Start 08/09/17 at 14:54 Lisinopril (Zestril) 20 mg DAILY PO Last administered on 08/13/17 08:40; Admin Dose 20 MG; Start 08/09/17 at 14:49 Carvedilol (Coreg) 25 mg BID PO Last administered on 08/13/17 08:41; Admin Dose 25 MG; Start 08/09/17 at 14:50 Spironolactone (Aldactone) 25 mg DAILY PO Last administered on 08/13/17 08:40 ; Admin Dose 25 MG; Start 08/09/17 at 16:30 Furosemide 20 mg 20 mg DAILY IV Last administered on 08/13/17 08:41; Admin Dose 20 MG; Start 08/11/17 at 10:00 Sodium Chloride (NS) 1,000 ml @ 80 mls/hr [id number] IV Last administered on 08/13 01:48; Admin Dose 80 MLS/HR; Start 08/12/17 at 10:12 Enoxaparin Sodium (Lovenox) 40 mg DAILY [place] Last administered on 08/13/17 08:48 ; Admin Dose 40 MG; Start 08/13/17 at 08:00 Morphine Sulfate (morphine) 3 mg Q3H PRN IV PAIN Last administered on 08:55; Admin Dose 3 MG; Start 08/12/17 at 10:30 Acetaminophen/ Hydrocodone Bitart ([place] (10/325)) 1 tab Q4H PRN PO PAIN Last administered on 08/13/17 06:15; Admin Dose 1 TAB; Start 08/12/17 at 10:30 HARLEY ORLANDO NP Aug 13, 2017 10:25
[2017-08-13 14:25] VITALS: BP 114/64; RESP 18
[2017-08-13 20:00] VITALS: BP 110/57; RESP 20
--- NOTE | 2017-08-13 20:01 | CONS ---
Date/Time of Note Date/Time of Note DATE: 08/13/17 TIME: 19:59 Consult Date/Type/Reason Admit Date/Time Aug 08, 2017 at 22:26 Initial Consult Date 08/09/17 Type of Consultation: cardiology Ordering Provider: HARLEY ORALNDO NP Subjective CARDIOLOGY FOLLOW UP NOTE: S: D/w staff pt s/p hip surgery 08/12/17 pt denies any cp or pressure or palpitations to me. he denies any PND orthopnea to me. no bleeding O; General: no acute distress HEENT: NC/AT. pupils are equal. round. NECK: NO JVD. no stridor. chest: s/p sternotomy CV: RRR. systolic murmur; no gallop or rubs. PULM: no wheezing or rhonchi. GI: SOFT, NT, ND, no rebound or guarding Extremity: trace B/L LE edema. no clubbing. s/p surgery LE neuro: awake and alert, OX3. Psych: calm and pleasant rectal: deferred : normal male ECHO personally reviewed: normal EF pulm HTN normal functioning AVR. xRAY: 1. ACUTE RIGHT FEMORAL NECK FRACTURE, with superior elevation of the right proximal femur. The femoral acetabular joint is intact. 2. Osteoarthritis of the left hip and lumbosacral spine. Objective Vital Signs Date Time Temp Pulse Resp B/P Pulse Ox O2 Delivery O2 Flow Rate FiO2 08/13/17 14:25 98.5 72 18 114/64 99 08/12/17 16:00 Room Air Intake and Output 08/12/17 08/12/17 08/13/17 15:00 23:00 07:00 Intake Total 1050 ml 1490 ml 720 ml Output Total 350 ml 600 ml 750 ml Balance 700 ml 890 ml -30 ml Results/Medications Result Diagram: 08/13/17 0534 08/13/17 0534 Results 24 hrs Laboratory Tests Test 08/13/17 05:34 White Blood Count 15.7 H Red Blood Count 4.79 Hemoglobin 13.4 L Hematocrit 41.6 L Mean Corpuscular Volume 86.8 Mean Corpuscular Hemoglobin 28.0 L Mean Corpuscular Hemoglobin Concent 32.2 Red Cell Distribution Width 14.9 H Platelet Count 154 Mean Platelet Volume 12.3 H Neutrophils % 80.8 H Lymphocytes % 4.8 L Monocytes % 13.6 H Eosinophils % 0.1 Basophils % 0.1 Nucleated Red Blood Cells % 0.0 Neutrophils # 12.7 H Lymphocytes # 0.8 Monocytes # 2.1 H Eosinophils # 0.0 Basophils # 0.0 Nucleated Red Blood Cells # 0.0 Sodium Level 142 Potassium Level 4.1 Chloride Level 102 Carbon Dioxide Level 29 Anion Gap 15 Blood Urea Nitrogen 33 H Creatinine 1.01 Glucose Level 190 Calcium Level 8.6 Magnesium Level 2.0 Medications Current Medications Amantadine HCl (Symmetrel) 200 mg BID PO Last administered on 08/13/17 08:40; Admin Dose 200 MG; Start 08/09/17 at 21:00 Aspirin (Halfprin) 81 mg DAILY PO Last administered on 08/13/17 08:40; Admin Dose 81 MG; Start 08/10/17 at 09:00 Atorvastatin Calcium (Lipitor) 80 mg QHS PO Last administered on 08/12/17 21: 10; Admin Dose 80 MG; Start 08/09/17 at 21:00 Carbidopa/Levodopa (Sinemet (25/ 100)) 1 tab QID PO Last administered on 17:34; Admin Dose 1 TAB; Start 08/09/17 at 17:00 Eye Lubricant (Refresh Plus) 1 drop TID PRN BOTH EYES DRY EYES; Start at 15:00 Cholecalciferol (Vitamin D) 1,000 unit DAILY PO Last administered on 08/13/17 08:40; Admin Dose 1,000 UNIT; Start 08/10/17 at 09:00 Docusate Sodium (Colace) 250 mg BID PO Last administered on 08/13/17 08:40; Admin Dose 250 MG; Start 08/09/17 at 21:00 Gabapentin (Neurontin) 300 mg QHS PO Last administered on 08/12/17 21:13; Admin Dose 300 MG; Start 08/09/17 at 21:00 Polyethylene Glycol (Miralax) 17 gm DAILY PRN PO CONSTIPATION; Start 08/09/17 at 15:00 Senna (Senokot) 1 tab DAILY PRN PO CONSTIPATION Last administered on 08/13/17 06:14; Admin Dose 1 TAB; Start 08/09/17 at 15:00 Tamsulosin HCl (Flomax) 0.4 mg HS PO Last administered on 08/12/17 21:10; Admin Dose 0.4 MG; Start 08/09/17 at 21:00 Lactobacillus Acidophilus/ Rhamnosus (Culturelle) 1 cap BID PO Last administered on 08/13/17 08:40; Admin Dose 1 CAP; Start 08/09/17 at 14:54 Lisinopril (Zestril) 20 mg DAILY PO Last administered on 08/13/17 08:40; Admin Dose 20 MG; Start 08/09/17 at 14:49 Carvedilol (Coreg) 25 mg BID PO Last administered on 08/13/17 08:41; Admin Dose 25 MG; Start 08/09/17 at 14:50 Spironolactone (Aldactone) 25 mg DAILY PO Last administered on 08/13/17 08:40 ; Admin Dose 25 MG; Start 08/09/17 at 16:30 Furosemide (Lasix) 20 mg DAILY IV Last administered on 08/13/17 08:41; Admin Dose 20 MG; Start 08/11/17 at 10:00 Enoxaparin Sodium (Lovenox) 40 mg DAILY [place] Last administered on 08/13/17 08:48 ; Admin Dose 40 MG; Start 08/13/17 at 08:00 Morphine Sulfate (morphine) 3 mg Q3H PRN IV PAIN Last administered on 13:39; Admin Dose 3 MG; Start 08/12/17 at 10:30 Acetaminophen/ Hydrocodone Bitart ([place] (10/325)) 1 tab Q4H PRN PO PAIN Last administered on 08/13/17 06:15; Admin Dose 1 TAB; Start 08/12/17 at 10:30 Assessment/Plan Chief Complaint/Hosp Course 1.CV preop evaluation 2. R Femoral neck fracture: S/P surgery now. 3. CAD 4. HX CABG 5. HX AVR 6. HTN 7. Dyslipidemia 8. pulm HTN, CHF: chronic and stable due to diastolic heart failure 9./ Hypo K: corrected now cont coreg/ BELEM-I lasix . will replace K AND Mg prn resume eliquis once ok with ortho. cont statin DVT prophylaxis as per IM Thank you for his referral. I will continue to follow along with you. DEVENDRA DODGE MD LOCATED WITHIN [facility] Problems: DEVENDRA DODGE MD Aug 13, 2017 20:00
[2017-08-13] MEDS: ATORVASTATIN 80 MG TAB PO SCH (22:16)
[2017-08-13] MEDS: TAMSULOSIN (SR) 0.4 MG CAP PO SCH (22:17)
[2017-08-14 02:20] VITALS: BP 123/64; RESP 18
[2017-08-14] MEDS: HYDROCODONE/APAP (10/325) TAB PO PRN ×3 (02:24→15:18)
[2017-08-14] MEDS: GABAPENTIN 300 MG CAP PO SCH ×2 (06:10→22:19)
[2017-08-14 07:36] VITALS: BP 114/63; RESP 18
[2017-08-14] MEDS: FUROSEMIDE 20 MG INJ IV SCH (09:00)
[2017-08-14] MEDS: DOCUSATE SODIUM 250 MG CAP PO SCH ×2 (09:00→22:20)
[2017-08-14] MEDS: LISINOPRIL 20 MG TAB PO SCH (09:00)
[2017-08-14] MEDS: LACTOBACILLUS RHAMNOSUS CAP PO SCH ×2 (09:01→22:20)
[2017-08-14] MEDS: ASPIRIN (EC) 81 MG TAB PO SCH (09:01)
[2017-08-14] MEDS: CHOLECALCIFEROL 1,000 UNIT TAB PO SCH (09:01)
[2017-08-14] MEDS: AMANTADINE 100 MG CAP PO SCH ×2 (09:01→22:20)
[2017-08-14] MEDS: SPIRONOLACTONE 25 MG TAB PO SCH (09:01)
[2017-08-14] MEDS: CARBIDOPA/LEVODOPA (25/100) TAB PO SCH ×4 (09:01→22:19)
[2017-08-14] MEDS: ENOXAPARIN 30 MG/0.3 ML SYG SC SCH (09:15)
[2017-08-14 15:11] VITALS: BP 130/87; RESP 18
[2017-08-14 15:20] VITALS: BP 120/61; RESP 18
--- NOTE | 2017-08-14 17:40 | PN ---
Date/Time of Note Date/Time of Note DATE: 08/14/17 TIME: 17:39 Assessment/Plan VTE Prophylaxis VTE Prophylaxis Intervention: LMWH Lines/Catheters [facility]from [facility] [place] [facility] Urinary Cath still in place: No Assessment/Plan Chief Complaint/Hosp Course 1. Mechanical fall with resultant right femoral neck fracture. Status post right hip hemiarthroplasty on 08/12/2017. Pain control. Continue physical therapy. 2. CAD. Status post CABG. Continue aspirin, blockers, BELEM inhibitors. Cardiology following. 3. Status post aortic valve replacement. The patient was on anticoagulation with Eliquis. This will be resumed as per cardiology. 4. Dyslipidemia. Continue statins. 5. Hypertension. Continue antihypertensives. 6. Peripheral neuropathy. Continue gabapentin. 7. Parkinson's disease. Continue carbidopa levodopa and amantadine. 8. Leukocytosis. Etiology unclear. Improving. Cultures negative. The patient remains afebrile. 9. Fluids, electrolytes, and nutrition. Low-cholesterol diet. 10. DVT prophylaxis. Currently on Lovenox. Resumption of Eliquis will be deferred to cardiology. Case discussed with Dr. Rucker. Problems: Subjective 24 Hr Interval Summary Free Text/Dictation Right hip pain well controlled. Exam/Review of Systems Vital Signs Vitals Vital Signs Date Time Temp Pulse Resp B/P Pulse Ox O2 Delivery O2 Flow Rate FiO2 08/14/17 15:20 98.4 71 18 120/61 96 08/12/17 16:00 Room Air Intake and Output 08/13/17 08/13/17 08/14/17 14:59 22:59 06:59 Intake Total 160 ml 850 ml 450 ml Output Total 750 ml 750 ml Balance 160 ml 100 ml -300 ml Exam General: Obese 72 year-old male lying in bed in no apparent distress. HEENT: Normocephalic, atraumatic. Eyes: Anicteric sclerae, conjunctivae clear. ENT: Nasal septum midline, oral mucosa moist. Neck supple, no JVD noticed. Respiratory: Bilaterally diminished breath sounds. No use of accessory muscles of respiration. No adventitious breath sounds. Cardiovascular: S1, S2 heard. Regular rate and rhythm. Abdomen: Soft, nontender, and nondistended. Bowel sounds positive in all 4 quadrants. Genitourinary: Deferred. Extremities: No cyanosis, no clubbing, no edema. Peripheral pulses palpable. Right hip surgical dressing. Neurologic: Cranial nerves II through XII grossly intact. The patient is awake, alert, and oriented. Results Result Diagram: 08/14/1752 08/14/1752 Results 24 hrs Laboratory Tests Test 08/14/17 05:52 White Blood Count 13.6 H Red Blood Count 4.36 L Hemoglobin 12.6 L Hematocrit 38.8 L Mean Corpuscular Volume 89.0 Mean Corpuscular Hemoglobin 28.9 L Mean Corpuscular Hemoglobin Concent 32.5 Red Cell Distribution Width 14.7 H Platelet Count 159 Mean Platelet Volume 12.1 H Neutrophils % 75.2 Lymphocytes % 9.7 L Monocytes % 13.0 H Eosinophils % 1.2 Basophils % 0.2 Nucleated Red Blood Cells % 0.0 Neutrophils # 10.3 H Lymphocytes # 1.3 Monocytes # 1.8 H Eosinophils # 0.2 Basophils # 0.0 Nucleated Red Blood Cells # 0.0 Sodium Level 142 Potassium Level 4.1 Chloride Level 103 Carbon Dioxide Level 30 Anion Gap 13 Blood Urea Nitrogen 47 #H Creatinine 1.16 Glucose Level 159 Calcium Level 8.8 Magnesium Level 2.2 Medications Medications Current Medications Amantadine HCl (Symmetrel) 200 mg BID PO Last administered on 08/14/17 09:01; Admin Dose 200 MG; Start 08/09/17 at 21:00 Aspirin (Halfprin) 81 mg DAILY PO Last administered on 08/14/17 09:01; Admin Dose 81 MG; Start 08/10/17 at 09:00 Atorvastatin Calcium (Lipitor) 80 mg QHS PO Last administered on 08/13/17 22: 16; Admin Dose 80 MG; Start 08/09/17 at 21:00 Carbidopa/Levodopa (Sinemet (25/ 100)) 1 tab QID PO Last administered on 17:08; Admin Dose 1 TAB; Start 08/09/17 at 17:00 Eye Lubricant (Refresh Plus) 1 drop TID PRN BOTH EYES DRY EYES; Start at 15:00 Cholecalciferol (Vitamin D) 1,000 unit DAILY PO Last administered on 08/14/17 09:01; Admin Dose 1,000 UNIT; Start 08/10/17 at 09:00 Docusate Sodium (Colace) 250 mg BID PO Last administered on 08/14/17 09:00; Admin Dose 250 MG; Start 08/09/17 at 21:00 Gabapentin (Neurontin) 300 mg QHS PO Last administered on 08/13/17 22:16; Admin Dose 300 MG; Start 08/09/17 at 21:00 Polyethylene Glycol (Miralax) 17 gm DAILY PRN PO CONSTIPATION Last administered on 08/14/17 06:10; Admin Dose 17 GM; Start 08/09/17 at 15:00 Senna (Senokot) 1 tab DAILY PRN PO CONSTIPATION Last administered on 08/13/17 06:14; Admin Dose 1 TAB; Start 08/09/17 at 15:00 Tamsulosin HCl (Flomax) 0.4 mg HS PO Last administered on 08/13/17 22:17; Admin Dose 0.4 MG; Start 08/09/17 at 21:00 Lactobacillus Acidophilus/ Rhamnosus (Culturelle) 1 cap BID PO Last administered on 08/14/17 09:01; Admin Dose 1 CAP; Start 08/09/17 at 14:54 Lisinopril (Zestril) 20 mg DAILY PO Last administered on 08/14/17 09:00; Admin Dose 20 MG; Start 08/09/17 at 14:49 Carvedilol (Coreg) 25 mg BID PO Last administered on 08/14/17 09:01; Admin Dose 25 MG; Start 08/09/17 at 14:50 Spironolactone (Aldactone) 25 mg DAILY PO Last administered on 08/14/17 09:01 ; Admin Dose 25 MG; Start 08/09/17 at 16:30 Furosemide (Lasix) 20 mg DAILY IV Last administered on 08/14/17 09:00; Admin Dose 20 MG; Start 08/11/17 at 10:00 Enoxaparin Sodium (Lovenox) 40 mg DAILY [place] Last administered on 08/14/17 09:15 ; Admin Dose 40 MG; Start 08/13/17 at 08:00 Morphine Sulfate (morphine) 3 mg Q3H PRN IV PAIN Last administered on 13:39; Admin Dose 3 MG; Start 08/12/17 at 10:30 Acetaminophen/ Hydrocodone Bitart ([place] (10/325)) 1 tab Q4H PRN PO PAIN Last administered on 08/14/17t 15:18; Admin Dose 1 TAB; Start 08/12/17 at 10:30 KAUSHAL JIM NP Aug 14, 2017 17:40
[2017-08-14 20:00] VITALS: BP 114/61; RESP 20
[2017-08-14] MEDS: ATORVASTATIN 80 MG TAB PO SCH (22:20)
[2017-08-14] MEDS: TAMSULOSIN (SR) 0.4 MG CAP PO SCH (22:20)
[2017-08-15 02:00] VITALS: BP 123/64; RESP 20
[2017-08-15] MEDS: GABAPENTIN 300 MG CAP PO SCH ×2 (07:08→21:07)
[2017-08-15 07:55] VITALS: BP 157/73; RESP 18
[2017-08-15] MEDS: AMANTADINE 100 MG CAP PO SCH ×2 (08:47→21:07)
[2017-08-15] MEDS: CHOLECALCIFEROL 1,000 UNIT TAB PO SCH (08:47)
[2017-08-15] MEDS: LACTOBACILLUS RHAMNOSUS CAP PO SCH ×2 (08:47→21:08)
[2017-08-15] MEDS: CARBIDOPA/LEVODOPA (25/100) TAB PO SCH ×4 (08:48→21:07)
[2017-08-15] MEDS: SPIRONOLACTONE 25 MG TAB PO SCH (08:48)
[2017-08-15] MEDS: DOCUSATE SODIUM 250 MG CAP PO SCH ×2 (08:49→21:07)
[2017-08-15] MEDS: LISINOPRIL 20 MG TAB PO SCH (08:49)
[2017-08-15] MEDS: ASPIRIN (EC) 81 MG TAB PO SCH (08:49)
[2017-08-15] MEDS: HYDROCODONE/APAP (10/325) TAB PO PRN ×3 (08:50→17:39)
[2017-08-15] MEDS: FUROSEMIDE 20 MG INJ IV SCH (08:50)
[2017-08-15] MEDS: ENOXAPARIN 30 MG/0.3 ML SYG SC SCH (08:55)
--- NOTE | 2017-08-15 12:36 | PN ---
Date/Time of Note Date/Time of Note DATE: 08/15/17 TIME: 12:34 Assessment/Plan VTE Prophylaxis VTE Prophylaxis Intervention: LMWH Lines/Catheters IV C[facility] Type [facility] [place] [facility] Urinary Cath still in place: No Assessment/Plan Chief Complaint/Hosp Course 1. Mechanical fall with resultant right femoral neck fracture. Status post right hip hemiarthroplasty on 08/12/2017. Pain control. Continue physical therapy. 2. CAD. Status post CABG. Continue aspirin, blockers, BELEM inhibitors. Cardiology following. 3. Status post aortic valve replacement. The patient was on anticoagulation with Eliquis. This will be resumed as per cardiology. 4. Dyslipidemia. Continue statins. 5. Hypertension. Continue antihypertensives. 6. Peripheral neuropathy. Continue gabapentin. 7. Parkinson's disease. Continue carbidopa levodopa and amantadine. 8. Leukocytosis. Etiology unclear. Improving. Cultures negative. The patient remains afebrile. 9. Fluids, electrolytes, and nutrition. Low-cholesterol diet. 10. DVT prophylaxis. Currently on Lovenox. Resumption of Eliquis will be deferred to cardiology. Discharge disposition will be to SNF once cleared by consultants. Case discussed with Dr. Rucker. Problems: Subjective 24 Hr Interval Summary Free Text/Dictation Complains of some right knee pain. Has chronic right knee pain. Exam/Review of Systems Vital Signs Vitals Vital Signs Date Time Temp Pulse Resp B/P Pulse Ox O2 Delivery O2 Flow Rate FiO2 08/15/17 07:55 98.5 65 18 157/73 97 08/12/17 16:00 Room Air Intake and Output 08/14/17 08/14/17 08/15/17 15:00 23:00 07:00 Intake Total 1000 ml Output Total 500 ml 350 ml 250 ml Balance -500 ml 650 ml -250 ml Exam General: Obese 72 year-old male lying in bed in no apparent distress. HEENT: Normocephalic, atraumatic. Eyes: Anicteric sclerae, conjunctivae clear. ENT: Nasal septum midline, oral mucosa moist. Neck supple, no JVD noticed. Respiratory: Bilaterally diminished breath sounds. No use of accessory muscles of respiration. No adventitious breath sounds. Cardiovascular: S1, S2 heard. Regular rate and rhythm. Abdomen: Soft, nontender, and nondistended. Bowel sounds positive in all 4 quadrants. Genitourinary: Deferred. Extremities: No cyanosis, no clubbing, no edema. Peripheral pulses palpable. Right hip surgical dressing. Neurologic: Cranial nerves II through XII grossly intact. The patient is awake, alert, and oriented. Results Result Diagram: 08/15/17 0548 08/15/17 0548 Results 24 hrs Laboratory Tests Test 08/15/17 05:48 White Blood Count 12.9 H Red Blood Count 3.99 L Hemoglobin 11.3 L Hematocrit 35.8 L Mean Corpuscular Volume 89.7 Mean Corpuscular Hemoglobin 28.3 L Mean Corpuscular Hemoglobin Concent 31.6 L Red Cell Distribution Width 15.0 H Platelet Count 171 Mean Platelet Volume 11.8 H Neutrophils % 66.0 Lymphocytes % 14.9 L Monocytes % 11.8 H Eosinophils % 5.9 Basophils % 0.7 Nucleated Red Blood Cells % 0.0 Neutrophils # 8.5 H Lymphocytes # 1.9 Monocytes # 1.5 H Eosinophils # 0.8 H Basophils # 0.1 Nucleated Red Blood Cells # 0.0 Sodium Level 141 Potassium Level 4.1 Chloride Level 103 Carbon Dioxide Level 31 Anion Gap 11 Blood Urea Nitrogen 38 H Creatinine 1.04 Glucose Level 131 Calcium Level 8.7 Phosphorus Level 3.0 Magnesium Level 1.8 Medications Medications Current Medications Amantadine HCl (Symmetrel) 200 mg BID PO Last administered on 08/15/17 08:47; Admin Dose 200 MG; Start 08/09/17 at 21:00 Aspirin (Halfprin) 81 mg DAILY PO Last administered on 08/15/17 08:49; Admin Dose 81 MG; Start 08/10/17 at 09:00 Atorvastatin Calcium (Lipitor) 80 mg QHS PO Last administered on 08/14/17 22: 20; Admin Dose 80 MG; Start 08/09/17 at 21:00 Carbidopa/Levodopa (Sinemet (25/ 100)) 1 tab QID PO Last administered on 08:48; Admin Dose 1 TAB; Start 08/09/17 at 17:00 Eye Lubricant (Refresh Plus) 1 drop TID PRN BOTH EYES DRY EYES; Start at 15:00 Cholecalciferol (Vitamin D) 1,000 unit DAILY PO Last administered on 08/15/17 08:47; Admin Dose 1,000 UNIT; Start 08/10/17 at 09:00 Docusate Sodium (Colace) 250 mg BID PO Last administered on 08/15/17 08:49; Admin Dose 250 MG; Start 08/09/17 at 21:00 Gabapentin (Neurontin) 300 mg QHS PO Last administered on 08/14/17 22:19; Admin Dose 300 MG; Start 08/09/17 at 21:00 Polyethylene Glycol (Miralax) 17 gm DAILY PRN PO CONSTIPATION Last administered on 08/14/17 06:10; Admin Dose 17 GM; Start 08/09/17 at 15:00 Senna (Senokot) 1 tab DAILY PRN PO CONSTIPATION Last administered on 08/13/17 06:14; Admin Dose 1 TAB; Start 08/09/17 at 15:00 Tamsulosin HCl (Flomax) 0.4 mg HS PO Last administered on 08/14/17 22:20; Admin Dose 0.4 MG; Start 08/09/17 at 21:00 Lactobacillus Acidophilus/ Rhamnosus (Culturelle) 1 cap BID PO Last administered on 08/15/17 08:47; Admin Dose 1 CAP; Start 08/09/17 at 14:54 Lisinopril (Zestril) 20 mg DAILY PO Last administered on 08/15/17 08:49; Admin Dose 20 MG; Start 08/09/17 at 14:49 Carvedilol (Coreg) 25 mg BID PO Last administered on 08/15/17 08:50; Admin Dose 25 MG; Start 08/09/17 at 14:50 Spironolactone (Aldactone) 25 mg DAILY PO Last administered on 08/15/17 08:48 ; Admin Dose 25 MG; Start 08/09/17 at 16:30 Furosemide (Lasix) 20 mg DAILY IV Last administered on 08/15/17 08:50; Admin Dose 20 MG; Start 08/11/17 at 10:00 Morphine Sulfate (morphine) 3 mg Q3H PRN IV PAIN Last administered on 13:39; Admin Dose 3 MG; Start 08/12/17 at 10:30 Acetaminophen/ Hydrocodone Bitart ([place] (10/325)) 1 tab Q4H PRN PO PAIN Last administered on 08/15/17 08:50; Admin Dose 1 TAB; Start 08/12/17 at 10:30 Enoxaparin Sodium (Lovenox) 40 mg DAILY [place] ; Start 08/16/17 at 09:00 KAUSHAL JIM NP Aug 15, 2017 12:36
[2017-08-15 14:25] VITALS: BP 113/63; RESP 18
[2017-08-15 20:00] VITALS: BP 122/66; RESP 19
[2017-08-15] MEDS: ATORVASTATIN 80 MG TAB PO SCH (21:07)
[2017-08-15] MEDS: TAMSULOSIN (SR) 0.4 MG CAP PO SCH (21:08)
[2017-08-16 02:00] VITALS: BP 121/64; RESP 18
[2017-08-16] MEDS: GABAPENTIN 300 MG CAP PO SCH (06:35)
[2017-08-16 08:08] VITALS: BP 132/61; RESP 16
[2017-08-16] MEDS ORDERED: ENOXAPARIN 40 MG/0.4 ML SYG SC SCH (09:00)
[2017-08-16] MEDS: ASPIRIN (EC) 81 MG TAB PO SCH (09:16)
[2017-08-16] MEDS: AMANTADINE 100 MG CAP PO SCH (09:16)
[2017-08-16] MEDS: LACTOBACILLUS RHAMNOSUS CAP PO SCH (09:16)
[2017-08-16] MEDS: SPIRONOLACTONE 25 MG TAB PO SCH (09:17)
[2017-08-16] MEDS: CHOLECALCIFEROL 1,000 UNIT TAB PO SCH (09:17)
[2017-08-16] MEDS: DOCUSATE SODIUM 250 MG CAP PO SCH (09:17)
[2017-08-16] MEDS: CARBIDOPA/LEVODOPA (25/100) TAB PO SCH ×2 (09:17→13:12)
[2017-08-16] MEDS: LISINOPRIL 20 MG TAB PO SCH (09:17)
[2017-08-16] MEDS: FUROSEMIDE 20 MG INJ IV SCH (09:18)
[2017-08-16] MEDS: HYDROCODONE/APAP (10/325) TAB PO PRN (10:41)
--- NOTE | 2017-08-16 11:31 | PDOCDIS ---
Discharge Instructions CONDITION Patient Condition: Stable HOME CARE INSTRUCTIONS: Diet Instructions: 2gm Na FOLLOW UP/APPOINTMENTS Follow-up Plan 1.Follow up with primary care physician in 1 week If you don't have one please let someone know, we can give you resources that may help you pick one. You may also call your insurance company to assign one to you. Review your medication list with your nurse before leaving and if you need new prescriptions please let your nurse know. I may have made changes to your home medications or given you new prescriptions, please let your primary doctor know as well. Stay compliant with your medications and report any side effects to your PCP or pharmacist. Return to the ER if you have any concerns and cannot reach your doctors or call your insurance company, they usually have a nurse that can help you. 2. Call 911 or go to the nearest emergency room if experiencing loss of consciousness, dizziness, chest pain, shortness of breath, vomiting/abdominal pain, speech difficulties, motor weakness or any unusual symptoms. 3. Follow-up with Dr. Duran in 2 weeks [id number] [facility] [address] [place] [id number] Office 4. Follow-up with affairs orthopedic team HARLEY ORLANDO NP Aug 16, 2017 11:31
--- NOTE | 2017-08-16 11:31 | PDOCDIS ---
Discharge Instructions CONDITION Patient Condition: Stable HOME CARE INSTRUCTIONS: Diet Instructions: 2gm Na FOLLOW UP/APPOINTMENTS Follow-up Plan 1.Follow up with primary care physician in 1 week If you don't have one please let someone know, we can give you resources that may help you pick one. You may also call your insurance company to assign one to you. Review your medication list with your nurse before leaving and if you need new prescriptions please let your nurse know. I may have made changes to your home medications or given you new prescriptions, please let your primary doctor know as well. Stay compliant with your medications and report any side effects to your PCP or pharmacist. Return to the ER if you have any concerns and cannot reach your doctors or call your insurance company, they usually have a nurse that can help you. 2. Call 911 or go to the nearest emergency room if experiencing loss of consciousness, dizziness, chest pain, shortness of breath, vomiting/abdominal pain, speech difficulties, motor weakness or any unusual symptoms. 3. Follow-up with Dr. Duarn in 2 weeks [id number] [facility] [address] [place] [id number] Office 4. Follow-up with affairs orthopedic team HARLEY ORLANDO NP Aug 16, 2017 11:31
--- NOTE | 2017-08-16 11:31 | PDOCDIS ---
Discharge Instructions CONDITION Patient Condition: Stable HOME CARE INSTRUCTIONS: Diet Instructions: 2gm Na FOLLOW UP/APPOINTMENTS Follow-up Plan 1.Follow up with primary care physician in 1 week If you don't have one please let someone know, we can give you resources that may help you pick one. You may also call your insurance company to assign one to you. Review your medication list with your nurse before leaving and if you need new prescriptions please let your nurse know. I may have made changes to your home medications or given you new prescriptions, please let your primary doctor know as well. Stay compliant with your medications and report any side effects to your PCP or pharmacist. Return to the ER if you have any concerns and cannot reach your doctors or call your insurance company, they usually have a nurse that can help you. 2. Call 911 or go to the nearest emergency room if experiencing loss of consciousness, dizziness, chest pain, shortness of breath, vomiting/abdominal pain, speech difficulties, motor weakness or any unusual symptoms. 3. Follow-up with Dr. Duran in 2 weeks [id number] [facility] [address] [place] [id number] Office 4. Follow-up with affairs orthopedic team HARLEY ORLANDO NP Aug 16, 2017 11:31
[2017-08-16] MEDS ORDERED: SPIR25TA PO (11:32)
--- NOTE | 2017-08-16 11:32 | DS ---
Date/Time of Note Date/Time of Note DATE: 08/16/17 TIME: 11:32 Discharge Summary Admission/Discharge Info Admit Date/Time Aug 08, 2017 at 22:26 Discharge Date/Time Discharge Diagnosis 1. Mechanical fall with resultant right femoral neck fracture. Status post right hip hemiarthroplasty on 08/12/2017. 2. CAD. Status post CABG. 3. Status post aortic valve replacement. 4. Dyslipidemia. 5. Hypertension. 6. Peripheral neuropathy. 7. Parkinson's disease. Patient Condition: Stable Consults Dr. Duran, orthopedics , cardiology Procedures 08/08/2017. Pelvis CT. 1. Acute, closed, comminuted and impacted right femoral neck fracture with foreshortening and mild displacement of fracture fragments is noted. 2. Generalized osteopenia 08/12/2017. Operation performed: Hemiarthroplasty of the right hip. Hospital Course This is a 72-year-old male with a past medical history of coronary artery disease/with history of CABG, AVR, hypertension, right knee traumatic injury for which he is being followed up at [facility] for possible surgical treatment , dyslipidemia, peripheral neuropathy, Parkinson's disease, who was brought from a [facility] after had mechanical fall with resultant right hip pain and inability to move. Patient was noted with basal neck fracture of the right hip. He was admitted. Orthopedic consultation was called. On 08/12/2017, patient had undergone hemiarthroplasty of the right hip. Patient also had cardiology preop clearance. Patient tolerated the procedure well. Postoperatively, patient was evaluated with physical therapy and the recommendation was to discharge patient to [facility] for further rehabilitation. Patient was also recommended to continue Eliquis postoperatively per orthopedic recommendation. Disposition: Patient will be discharged to [facility] facility. Patient verbalized discharge instructions. Patient to follow-up with orthopedics as outpatient as well as [place] orthopedic team for his future knee surgical procedures. Approximately 60 minutes was spent in coordinating the discharge on this patient. Patient was seen in collaboration with Dr. Balderas. Home Meds Reported Medications Lactobacillus Acidophilus* (Lactinex*) 1 Tab Chew, 2 TAB PO DAILY, TAB 08/09/17 Menthol/Methyl Salicylate (Analgesic [place]) 28 Gm Oint...g., 1 GM TOP BID Y for PAIN 08/09/17 Carboxymethylcellulose Sodium* (Refresh Tears*) 15 Ml Drops, 1 DROP BOTH EYES TID Y for DRY EYES, EA 08/09/17 Carbidopa/Levodopa (Carbidopa-Levodopa 25-100 Tab) 1 Each Tablet, 1 EACH PO QID , TAB take at 0600,0900,12noon and 1500 08/09/17 Acetaminophen* (Tylophen*) 500 Mg Capsule, 1000 MG PO TID Y for PAIN, TAB 08/09/17 Apixaban* (Eliquis*) 5 Mg Tablet, 5 MG PO BID, TAB 08/09/17 Amantadine Hcl* (Amantadine Hcl*) 100 Mg Tablet, 200 MG PO BID, TAB 08/09/17 Diclofenac Sodium* (Voltaren* Gel) 1% -100 Gm Gel, 4 GM TOP QID Y for PAIN, #1 TUB for right knee pain 08/09/17 Cholecalciferol* (Vitamin D3*) 1,000 Unit Tablet, 1000 UNIT PO DAILY, TAB 08/09/17 Polyethylene Glycol* (Polyethylene Glycol*) 17 Gm Powd.pack, 17 GM PO DAILY Y for CONSTIPATION, PACKET 08/09/17 Sennosides* (Senokot*) 8.6 Mg Tablet, 1 TAB PO DAILY Y for CONSTIPATION, TAB 08/09/17 Tramadol HCl (Tramadol HCl) 50 Mg Tablet, 50 MG PO TID Y for PAIN, TAB 08/09/17 Tamsulosin Hcl* (Tamsulosin Hcl*) 0.4 Mg Cap.er.24h, 0.4 MG PO HS, CAP 08/09/17 Lisinopril* (Lisinopril*) 20 Mg Tablet, 20 MG PO DAILY, TAB 08/09/17 Carvedilol* (Carvedilol*) 25 Mg Tablet, 25 MG PO BID, TAB 08/09/17 Gabapentin* (Gabapentin*) 300 Mg Capsule, 300 MG PO BEFORE BREAKFAST, CAP 08/09/17 Gabapentin* (Gabapentin*) 300 Mg Capsule, 300 MG PO QHS, CAP 08/09/17 Docusate Sodium* (Colace*) 250 Mg Capsule, 250 MG PO BID, #60 CAP 08/09/17 Atorvastatin Calcium* (Atorvastatin Calcium*) 20 Mg Tablet, 80 MG PO QHS, TAB 08/09/17 Aspirin* (Aspirin* EC) 81 Mg Tablet.dr, 81 MG PO DAILY, TAB 08/09/17 Follow-up Plan 1.Follow up with primary care physician in 1 week If you don't have one please let someone know, we can give you resources that may help you pick one. You may also call your insurance company to assign one to you. Review your medication list with your nurse before leaving and if you need new prescriptions please let your nurse know. I may have made changes to your home medications or given you new prescriptions, please let your primary doctor know as well. Stay compliant with your medications and report any side effects to your PCP or pharmacist. Return to the ER if you have any concerns and cannot reach your doctors or call your insurance company, they usually have a nurse that can help you. 2. Call 911 or go to the nearest emergency room if experiencing loss of consciousness, dizziness, chest pain, shortness of breath, vomiting/abdominal pain, speech difficulties, motor weakness or any unusual symptoms. 3. Follow-up with Dr. Duran in 2 weeks [id number] [facility] [address] [place] [address] Office 4. Follow-up with [facility] orthopedic team Primary Care Provider Not On Staff Doctor Pending Labs Laboratory Tests Test 08/16/17 05:29 White Blood Count 12.710^3/ul (4.8-10.8) Red Blood Count 4.2410^6/ul (4.70-6.10) Hemoglobin 12.2g/dl (14.0-18.0) Hematocrit 38.3% (42.0-52.0) Mean Corpuscular Volume 90.3fl (82.0-101.0) Mean Corpuscular Hemoglobin 28.8pg (29.0-33.0) Mean Corpuscular Hemoglobin Concent 31.9g/dl (32.0-37.0) Red Cell Distribution Width 14.8% (11.5-14.5) Platelet Count 60258^3/UL (140-415) Mean Platelet Volume 11.4fl (7.4-10.4) Neutrophils % 68.7% (39.0-77.0) Lymphocytes % 13.0% (15.0-51.0) Monocytes % 10.1% (0.0-11.0) Eosinophils % 6.3% (0.0-7.0) Basophils % 0.6% (0.0-2.0) Nucleated Red Blood Cells % 0.0/100WBC (0.0-0.0) Neutrophils # 8.710^3/ul (1.6-7.5) Lymphocytes # 1.710^3/ul (0.8-2.9) Monocytes # 1.310^3/ul (0.3-0.9) Eosinophils # 0.810^3/ul (0.0-0.5) Basophils # 0.110^3/ul (0.0-0.1) Nucleated Red Blood Cells # 0.010^3/ul (0.0-0.0) Sodium Level 143mmol/L (135-144) Potassium Level 4.6mmol/L (3.5-5.1) Chloride Level 101mmol/L (97-110) Carbon Dioxide Level 34mmol/L (21-31) Anion Gap 13 (8-16) Blood Urea Nitrogen 36mg/dl (7-20) Creatinine 1.01mg/dl (0.61-1.24) Glucose Level 165mg/dl (70-220) Calcium Level 9.1mg/dl (8.4-10.2) Magnesium Level 2.0mg/dl (1.7-2.5) Total Bilirubin 0.7mg/dl (0.2-1.3) Direct Bilirubin 0.00mg/dl (0.00-0.20) Indirect Bilirubin 0.7mg/dl (0-1.1) Aspartate Amino Transf (AST/SGOT) 45IU/L (15-46) Alanine Aminotransferase (ALT/SGPT) 22IU/L (13-69) Alkaline Phosphatase 66IU/L (42-121) B-Type Natriuretic Peptide 457PG/ML (0-125) Total Protein 7.1g/dl (6.1-8.1) Albumin 3.4g/dl (3.3-4.9) Globulin 3.70g/dl (1.3-3.2) Albumin/Globulin Ratio 0.91 HARLEY ORLANDO V. RN [facility] Aug 16, 2017 11:32
--- NOTE | 2017-08-16 11:32 | DS ---
Date/Time of Note Date/Time of Note DATE: 08/16/17 TIME: 11:32 Discharge Summary Admission/Discharge Info Admit Date/Time Aug 08, 2017 at 22:26 Discharge Date/Time Discharge Diagnosis 1. Mechanical fall with resultant right femoral neck fracture. Status post right hip hemiarthroplasty on 08/12/2017. 2. CAD. Status post CABG. 3. Status post aortic valve replacement. 4. Dyslipidemia. 5. Hypertension. 6. Peripheral neuropathy. 7. Parkinson's disease. Patient Condition: Stable Consults Dr. Duran, orthopedics , cardiology Procedures 08/08/2017. Pelvis CT. 1. Acute, closed, comminuted and impacted right femoral neck fracture with foreshortening and mild displacement of fracture fragments is noted. 2. Generalized osteopenia 08/12/2017. Operation performed: Hemiarthroplasty of the right hip. Hospital Course This is a 72-year-old male with a past medical history of coronary artery disease/with history of CABG, AVR, hypertension, right knee traumatic injury for which he is being followed up at [facility] for possible surgical treatment , dyslipidemia, peripheral neuropathy, Parkinson's disease, who was brought from a [facility] after had mechanical fall with resultant right hip pain and inability to move. Patient was noted with basal neck fracture of the right hip. He was admitted. Orthopedic consultation was called. On 08/12/2017, patient had undergone hemiarthroplasty of the right hip. Patient also had cardiology preop clearance. Patient tolerated the procedure well. Postoperatively, patient was evaluated with physical therapy and the recommendation was to discharge patient to custodial facility for further rehabilitation. Patient was also recommended to continue Eliquis postoperatively per orthopedic recommendation. Disposition: Patient will be discharged to custodial facility. Patient verbalized discharge instructions. Patient to follow-up with orthopedics as outpatient as well as [place] orthopedic team for his future knee surgical procedures. Approximately 60 minutes was spent in coordinating the discharge on this patient. Patient was seen in collaboration with Dr. Balderas. Home Meds Reported Medications Lactobacillus Acidophilus* (Lactinex*) 1 Tab Chew, 2 TAB PO DAILY, TAB 08/09/17 Menthol/Methyl Salicylate (Analgesic [place]) 28 Gm Oint...g., 1 GM TOP BID Y for PAIN 08/09/17 Carboxymethylcellulose Sodium* (Refresh Tears*) 15 Ml Drops, 1 DROP BOTH EYES TID Y for DRY EYES, EA 08/09/17 Carbidopa/Levodopa (Carbidopa-Levodopa 25-100 Tab) 1 Each Tablet, 1 EACH PO QID , TAB take at 0600,0900,12noon and 1500 08/09/17 Acetaminophen* (Tylophen*) 500 Mg Capsule, 1000 MG PO TID Y for PAIN, TAB 08/09/17 Apixaban* (Eliquis*) 5 Mg Tablet, 5 MG PO BID, TAB 08/09/17 Amantadine Hcl* (Amantadine Hcl*) 100 Mg Tablet, 200 MG PO BID, TAB 08/09/17 Diclofenac Sodium* (Voltaren* Gel) 1% -100 Gm Gel, 4 GM TOP QID Y for PAIN, #1 TUB for right knee pain 08/09/17 Cholecalciferol* (Vitamin D3*) 1,000 Unit Tablet, 1000 UNIT PO DAILY, TAB 08/09/17 Polyethylene Glycol* (Polyethylene Glycol*) 17 Gm Powd.pack, 17 GM PO DAILY Y for CONSTIPATION, PACKET 08/09/17 Sennosides* (Senokot*) 8.6 Mg Tablet, 1 TAB PO DAILY Y for CONSTIPATION, TAB 08/09/17 Tramadol HCl (Tramadol HCl) 50 Mg Tablet, 50 MG PO TID Y for PAIN, TAB 08/09/17 Tamsulosin Hcl* (Tamsulosin Hcl*) 0.4 Mg Cap.er.24h, 0.4 MG PO HS, CAP 08/09/17 Lisinopril* (Lisinopril*) 20 Mg Tablet, 20 MG PO DAILY, TAB 08/09/17 Carvedilol* (Carvedilol*) 25 Mg Tablet, 25 MG PO BID, TAB 08/09/17 Gabapentin* (Gabapentin*) 300 Mg Capsule, 300 MG PO BEFORE BREAKFAST, CAP 08/09/17 Gabapentin* (Gabapentin*) 300 Mg Capsule, 300 MG PO QHS, CAP 08/09/17 Docusate Sodium* (Colace*) 250 Mg Capsule, 250 MG PO BID, #60 CAP 08/09/17 Atorvastatin Calcium* (Atorvastatin Calcium*) 20 Mg Tablet, 80 MG PO QHS, TAB 08/09/17 Aspirin* (Aspirin* EC) 81 Mg Tablet.dr, 81 MG PO DAILY, TAB 08/09/17 Follow-up Plan 1.Follow up with primary care physician in 1 week If you don't have one please let someone know, we can give you resources that may help you pick one. You may also call your insurance company to assign one to you. Review your medication list with your nurse before leaving and if you need new prescriptions please let your nurse know. I may have made changes to your home medications or given you new prescriptions, please let your primary doctor know as well. Stay compliant with your medications and report any side effects to your PCP or pharmacist. Return to the ER if you have any concerns and cannot reach your doctors or call your insurance company, they usually have a nurse that can help you. 2. Call 911 or go to the nearest emergency room if experiencing loss of consciousness, dizziness, chest pain, shortness of breath, vomiting/abdominal pain, speech difficulties, motor weakness or any unusual symptoms. 3. Follow-up with Dr. Duran in 2 weeks [id number] [facility] [address] [place] [phone] Office 4. Follow-up with [facility] orthopedic team Primary Care Provider Not On Staff Doctor Pending Labs Laboratory Tests Test 08/16/17 05:29 White Blood Count 12.710^3/ul (4.8-10.8) Red Blood Count 4.2410^6/ul (4.70-6.10) Hemoglobin 12.2g/dl (14.0-18.0) Hematocrit 38.3% (42.0-52.0) Mean Corpuscular Volume 90.3fl (82.0-101.0) Mean Corpuscular Hemoglobin 28.8pg (29.0-33.0) Mean Corpuscular Hemoglobin Concent 31.9g/dl (32.0-37.0) Red Cell Distribution Width 14.8% (11.5-14.5) Platelet Count 05423^3/UL (140-415) Mean Platelet Volume 11.4fl (7.4-10.4) Neutrophils % 68.7% (39.0-77.0) Lymphocytes % 13.0% (15.0-51.0) Monocytes % 10.1% (0.0-11.0) Eosinophils % 6.3% (0.0-7.0) Basophils % 0.6% (0.0-2.0) Nucleated Red Blood Cells % 0.0/100WBC (0.0-0.0) Neutrophils # 8.710^3/ul (1.6-7.5) Lymphocytes # 1.710^3/ul (0.8-2.9) Monocytes # 1.310^3/ul (0.3-0.9) Eosinophils # 0.810^3/ul (0.0-0.5) Basophils # 0.110^3/ul (0.0-0.1) Nucleated Red Blood Cells # 0.010^3/ul (0.0-0.0) Sodium Level 143mmol/L (135-144) Potassium Level 4.6mmol/L (3.5-5.1) Chloride Level 101mmol/L (97-110) Carbon Dioxide Level 34mmol/L (21-31) Anion Gap 13 (8-16) Blood Urea Nitrogen 36mg/dl (7-20) Creatinine 1.01mg/dl (0.61-1.24) Glucose Level 165mg/dl (70-220) Calcium Level 9.1mg/dl (8.4-10.2) Magnesium Level 2.0mg/dl (1.7-2.5) Total Bilirubin 0.7mg/dl (0.2-1.3) Direct Bilirubin 0.00mg/dl (0.00-0.20) Indirect Bilirubin 0.7mg/dl (0-1.1) Aspartate Amino Transf (AST/SGOT) 45IU/L (15-46) Alanine Aminotransferase (ALT/SGPT) 22IU/L (13-69) Alkaline Phosphatase 66IU/L (42-121) B-Type Natriuretic Peptide 457PG/ML (0-125) Total Protein 7.1g/dl (6.1-8.1) Albumin 3.4g/dl (3.3-4.9) Globulin 3.70g/dl (1.3-3.2) Albumin/Globulin Ratio 0.91 HARLEY ORLANDO V. ORTHOPEDIC NURSE Aug 16, 2017 11:32
--- NOTE | 2017-08-16 11:32 | DS ---
Date/Time of Note Date/Time of Note DATE: 08/16/17 TIME: 11:32 Discharge Summary Admission/Discharge Info Admit Date/Time Aug 08, 2017 at 22:26 Discharge Date/Time Discharge Diagnosis 1. Mechanical fall with resultant right femoral neck fracture. Status post right hip hemiarthroplasty on 08/12/2017. 2. CAD. Status post CABG. 3. Status post aortic valve replacement. 4. Dyslipidemia. 5. Hypertension. 6. Peripheral neuropathy. 7. Parkinson's disease. Patient Condition: Stable Consults Dr. Duran, orthopedics , cardiology Procedures 08/08/2017. Pelvis CT. 1. Acute, closed, comminuted and impacted right femoral neck fracture with foreshortening and mild displacement of fracture fragments is noted. 2. Generalized osteopenia 08/12/2017. Operation performed: Hemiarthroplasty of the right hip. Hospital Course This is a 72-year-old male with a past medical history of coronary artery disease/with history of CABG, AVR, hypertension, right knee traumatic injury for which he is being followed up at for possible surgical treatment , dyslipidemia, peripheral neuropathy, Parkinson's disease, who was brought from a [facility] after had mechanical fall with resultant right hip pain and inability to move. Patient was noted with basal neck fracture of the right hip. He was admitted. Orthopedic consultation was called. On 08/12/2017, patient had undergone hemiarthroplasty of the right hip. Patient also had cardiology preop clearance. Patient tolerated the procedure well. Postoperatively, patient was evaluated with physical therapy and the recommendation was to discharge patient to assisted facility for further rehabilitation. Patient was also recommended to continue Eliquis postoperatively per orthopedic recommendation. Disposition: Patient will be discharged to assisted facility. Patient verbalized discharge instructions. Patient to follow-up with orthopedics as outpatient as well as [facility] orthopedic team for his future knee surgical procedures. Approximately 60 minutes was spent in coordinating the discharge on this patient. Patient was seen in collaboration with Dr. Balderas. Home Meds Reported Medications Lactobacillus Acidophilus* (Lactinex*) 1 Tab Chew, 2 TAB PO DAILY, TAB 08/09/17 Menthol/Methyl Salicylate (Analgesic [place]) 28 Gm Oint...g., 1 GM TOP BID Y for PAIN 08/09/17 Carboxymethylcellulose Sodium* (Refresh Tears*) 15 Ml Drops, 1 DROP BOTH EYES TID Y for DRY EYES, EA 08/09/17 Carbidopa/Levodopa (Carbidopa-Levodopa 25-100 Tab) 1 Each Tablet, 1 EACH PO QID , TAB take at 0600,0900,12noon and 1500 08/09/17 Acetaminophen* (Tylophen*) 500 Mg Capsule, 1000 MG PO TID Y for PAIN, TAB 08/09/17 Apixaban* (Eliquis*) 5 Mg Tablet, 5 MG PO BID, TAB 08/09/17 Amantadine Hcl* (Amantadine Hcl*) 100 Mg Tablet, 200 MG PO BID, TAB 08/09/17 Diclofenac Sodium* (Voltaren* Gel) 1% -100 Gm Gel, 4 GM TOP QID Y for PAIN, #1 TUB for right knee pain 08/09/17 Cholecalciferol* (Vitamin D3*) 1,000 Unit Tablet, 1000 UNIT PO DAILY, TAB 08/09/17 Polyethylene Glycol* (Polyethylene Glycol*) 17 Gm Powd.pack, 17 GM PO DAILY Y for CONSTIPATION, PACKET 08/09/17 Sennosides* (Senokot*) 8.6 Mg Tablet, 1 TAB PO DAILY Y for CONSTIPATION, TAB 08/09/17 Tramadol HCl (Tramadol HCl) 50 Mg Tablet, 50 MG PO TID Y for PAIN, TAB 08/09/17 Tamsulosin Hcl* (Tamsulosin Hcl*) 0.4 Mg Cap.er.24h, 0.4 MG PO HS, CAP 08/09/17 Lisinopril* (Lisinopril*) 20 Mg Tablet, 20 MG PO DAILY, TAB 08/09/17 Carvedilol* (Carvedilol*) 25 Mg Tablet, 25 MG PO BID, TAB 08/09/17 Gabapentin* (Gabapentin*) 300 Mg Capsule, 300 MG PO BEFORE BREAKFAST, CAP 08/09/17 Gabapentin* (Gabapentin*) 300 Mg Capsule, 300 MG PO QHS, CAP 08/09/17 Docusate Sodium* (Colace*) 250 Mg Capsule, 250 MG PO BID, #60 CAP 08/09/17 Atorvastatin Calcium* (Atorvastatin Calcium*) 20 Mg Tablet, 80 MG PO QHS, TAB 08/09/17 Aspirin* (Aspirin* EC) 81 Mg Tablet.dr, 81 MG PO DAILY, TAB 08/09/17 Follow-up Plan 1.Follow up with primary care physician in 1 week If you don't have one please let someone know, we can give you resources that may help you pick one. You may also call your insurance company to assign one to you. Review your medication list with your nurse before leaving and if you need new prescriptions please let your nurse know. I may have made changes to your home medications or given you new prescriptions, please let your primary doctor know as well. Stay compliant with your medications and report any side effects to your PCP or pharmacist. Return to the ER if you have any concerns and cannot reach your doctors or call your insurance company, they usually have a nurse that can help you. 2. Call 911 or go to the nearest emergency room if experiencing loss of consciousness, dizziness, chest pain, shortness of breath, vomiting/abdominal pain, speech difficulties, motor weakness or any unusual symptoms. 3. Follow-up with Dr. Duran in 2 weeks [id number] [facility] [address] [place] [id number] Office 4. Follow-up with [facility] orthopedic team Primary Care Provider Not On Staff Doctor Pending Labs Laboratory Tests Test 08/16/17 05:29 White Blood Count 12.710^3/ul (4.8-10.8) Red Blood Count 4.2410^6/ul (4.70-6.10) Hemoglobin 12.2g/dl (14.0-18.0) Hematocrit 38.3% (42.0-52.0) Mean Corpuscular Volume 90.3fl (82.0-101.0) Mean Corpuscular Hemoglobin 28.8pg (29.0-33.0) Mean Corpuscular Hemoglobin Concent 31.9g/dl (32.0-37.0) Red Cell Distribution Width 14.8% (11.5-14.5) Platelet Count 05545^3/UL (140-415) Mean Platelet Volume 11.4fl (7.4-10.4) Neutrophils % 68.7% (39.0-77.0) Lymphocytes % 13.0% (15.0-51.0) Monocytes % 10.1% (0.0-11.0) Eosinophils % 6.3% (0.0-7.0) Basophils % 0.6% (0.0-2.0) Nucleated Red Blood Cells % 0.0/100WBC (0.0-0.0) Neutrophils # 8.710^3/ul (1.6-7.5) Lymphocytes # 1.710^3/ul (0.8-2.9) Monocytes # 1.310^3/ul (0.3-0.9) Eosinophils # 0.810^3/ul (0.0-0.5) Basophils # 0.110^3/ul (0.0-0.1) Nucleated Red Blood Cells # 0.010^3/ul (0.0-0.0) Sodium Level 143mmol/L (135-144) Potassium Level 4.6mmol/L (3.5-5.1) Chloride Level 101mmol/L (97-110) Carbon Dioxide Level 34mmol/L (21-31) Anion Gap 13 (8-16) Blood Urea Nitrogen 36mg/dl (7-20) Creatinine 1.01mg/dl (0.61-1.24) Glucose Level 165mg/dl (70-220) Calcium Level 9.1mg/dl (8.4-10.2) Magnesium Level 2.0mg/dl (1.7-2.5) Total Bilirubin 0.7mg/dl (0.2-1.3) Direct Bilirubin 0.00mg/dl (0.00-0.20) Indirect Bilirubin 0.7mg/dl (0-1.1) Aspartate Amino Transf (AST/SGOT) 45IU/L (15-46) Alanine Aminotransferase (ALT/SGPT) 22IU/L (13-69) Alkaline Phosphatase 66IU/L (42-121) B-Type Natriuretic Peptide 457PG/ML (0-125) Total Protein 7.1g/dl (6.1-8.1) Albumin 3.4g/dl (3.3-4.9) Globulin 3.70g/dl (1.3-3.2) Albumin/Globulin Ratio 0.91 [place]LEY [place] V. [employer] Aug 16, 2017 11:32
[2017-08-16 14:00] VITALS: BP 125/68; RESP 18
== END 2017-08-16 17:03 | DRG 470 ==
LOC: E/R 18:45 → PP2 22:26
PROVIDERS: ADMIT Internal Medicine; ATTEND Internal Medicine
PROC: 0SRR01Z Replacement of Right Hip Joint, Femoral Surface with Metal Synthetic Substitute, Open Approach (ICD-10-PCS; principal; 2017-08-12 07:30)
DX: S72.091A Other fracture of head and neck of right femur, initial encounter for closed fracture (principal); N17.9 Acute kidney failure, unspecified; I50.32 Chronic diastolic (congestive) heart failure; I27.20 Pulmonary hypertension, unspecified; G20 Parkinson's disease; I11.0 Hypertensive heart disease with heart failure; M17.0 Bilateral primary osteoarthritis of knee; G62.9 Polyneuropathy, unspecified; Z87.891 Personal history of nicotine dependence; I25.10 Atherosclerotic heart disease of native coronary artery without angina pectoris; Z95.1 Presence of aortocoronary bypass graft; W18.30XA Fall on same level, unspecified, initial encounter; Y92.003 Bedroom of unspecified non-institutional (private) residence as the place of occurrence of the external cause; M48.061 Spinal stenosis, lumbar region without neurogenic claudication; G89.29 Other chronic pain; E78.5 Hyperlipidemia, unspecified; D72.829 Elevated white blood cell count, unspecified; E87.6 Hypokalemia; Z95.3 Presence of xenogenic heart valve; E66.9 Obesity, unspecified; Z68.31 Body mass index [BMI] 31.0-31.9, adult
CPT/HCPCS: 36415; 70450; 71010; 72125; 72148; 72170; 72192; 73500; 80048; 80053; 80061; 81001; 82550; 83735; 83880; 84100; 84443; 84484; 85025; 85610; 85730; 87081; 87086; 88305; 88311; 93005; 93306; 96374; 96375; 96376; 97110; 97116; 97162; 97530; J1940; C1776; J0690; J1100; J1170; J1650; J2250; J2270; J2274; J2370; J2405; J2710; J3010; J3475; J7030; J7040